=== PATIENT | female | born 1955 ===

== ENCOUNTER 2016-11-07 09:00 | Emergency (ER) | payer SELFPAY ==
[2016-11-07 09:09] VITALS: BMI 37.1
[2016-11-07] MEDS ORDERED: Albuterol-Ipratrop 3 mg / 0.5 (3 ml) UD IH STA ×2 (09:37)
[2016-11-07] MEDS ORDERED: Albuterol-Ipratrop 3 mg / 0.5 (3 ml) UD ONE (09:47)
--- NOTE | 2016-11-07 09:49 | ED PDOC ---
HPI: SOB/CHF/COPD Time Seen by Provider: 11/07/16 09:18 Chief Complaint (Nursing): Shortness Of Breath Chief Complaint (Provider): Shortness Of Breath History Per: Patient History/Exam Limitations: no limitations Onset/Duration Of Symptoms: Days (x1 week) Current Symptoms Are (Timing): Still Present Additional Complaint(s): 61 y/o female with a past medical history of asthma who presents to the emergency department with a complaint of shortness of breath, wheezing, and non- productive cough x1 week. Denies improvement with use of inhalers and fever. PMD: Dr. Franklin Romero MD Past Medical History Reviewed: Historical Data, Nursing Documentation, Vital Signs Vital Signs: Last Vital Signs Temp 98.4 F 11/07/16 09:09 Pulse 83 11/07/16 09:09 Resp 18 11/07/16 09:27 BP 140/81 11/07/16 09:09 Pulse Ox 98 11/07/16 09:51 - Medical History PMH: Asthma - Surgical History Surgical History: No Surg Hx - Family History Family History: States: Unknown Family Hx - Social History Current smoker - smoking cessation education provided: No Alcohol: None Drugs: Denies - Home Medications Home Medications: Ambulatory Orders Medication Instructions Recorded Albuterol 0.5% [Albuterol 0.5% 3 ml IH Q4H PRN #50 neb 03/14/16 Inhal Francheska (2.5 mg/0.5 ml) UD] Albuterol HFA [Ventolin HFA 90 2 puff IH Q4H PRN #1 inh 03/14/16 mcg/actuation (8 g)] Azithromycin [Zithromax] 250 mg PO DAILY #6 dose 03/14/16 Ciprofloxacin HCl [Cipro] 250 mg PO BID #6 tab 03/14/16 Prednisone 50 mg PO DAILY #4 tablet 03/14/16 Albuterol 0.083% [Albuterol 0.5 ml IH Q8 #1 neb 11/07/16 Sulfate 3 Ml] Non-Formulary 1 ea .ROUTE Q6 #1 ea 11/07/16 predniSONE [predniSONE Tab] 10 mg PO TID #15 tab 11/07/16 - Allergies Allergies/Adverse Reactions: Allergies Allergy/AdvReac Type Severity Reaction Status Date / Time No Known Allergies Allergy Verified 11/07/16 09:11 Review of Systems ROS Statement: Except As Marked, All Systems Reviewed And Found Negative Constitutional: Negative for: Fever Respiratory: Positive for: Cough (Non-productive), Shortness of Breath, Wheezing Physical Exam - Reviewed Nursing Documentation Reviewed: Yes Vital Signs Reviewed: Yes - Physical Exam Appears: Positive for: Non-toxic, No Acute Distress Head Exam: Positive for: ATRAUMATIC, NORMAL INSPECTION, NORMOCEPHALIC Skin: Positive for: Normal Color, Warm, Dry Cardiovascular/Chest: Positive for: Regular Rate, Rhythm. Negative for: Murmur Respiratory: Positive for: Rhonchi, Wheezing (Expiratory wheezing with rhonchi b /l). Negative for: Normal Breath Sounds, Accessory Muscle Use, Respiratory Distress Extremity: Positive for: Normal ROM. Negative for: Calf Tenderness, Swelling Neurologic/Psych: Positive for: Alert, Oriented - Laboratory Results Result Diagrams: 11/07/16 09:55 - ECG O2 Sat by Pulse Oximetry: 98 (RA) Pulse Ox Interpretation: Normal Medical Decision Making Medical Decision Making: Time: 09:36 Initial impression: Asthma Exacerbation Initial plan: --BMP --CBC w/ diff --Chest x-ray --Duoneb 3ml UD --Duoneb 3ml UD --Methylpredisolone 125 mg IVP --Peak Flow Pre/Post TX --Peak Flow Pre/Post TX --Reevaluation Scribe Attestation: Documented by Evelyn Horvath, acting as a scribe for Bryan Boyer MD. Provider Scribe Attestation: All medical record entries made by the Scribe were at my direction and personally dictated by me. I have reviewed the chart and agree that the record accurately reflects my personal performance of the history, physical exam, medical decision making, and the department course for this patient. I have also personally directed, reviewed, and agree with the discharge instructions and disposition. Disposition - Clinical Impression Clinical Impression: Asthma exacerbation - Patient ED Disposition Is Patient to be Admitted: No Counseled Patient/Family Regarding: Studies Performed, Diagnosis, Need For Followup, Rx Given - Disposition Referrals: [facility] [Outside] Disposition: Routine/Home Disposition Time: 10:28 Condition: FAIR Prescriptions: Albuterol 0.083% [Albuterol Sulfate 3 Ml] 0.5 ml IH Q8 #1 neb Non-Formulary 1 ea .ROUTE Q6 #1 ea predniSONE [predniSONE Tab] 10 mg PO TID #15 tab Instructions: Asthma (ED) Forms: [facility] (Gabonese)
[2016-11-07 10:05] LABS: BASO # 0.1 K/uL (0.0-0.2); EOS % 0.2 % (0.0-4.0); HEMOGLOBIN 14.2 g/dL (12.0-16.0); LYMPH # 2.2 K/uL (1.0-4.3); LYMPH % 17.7 % (20.0-40.0); MEAN CELL VOLUME 96.9 fl (81.0-99.0); MEAN CORPUSCULAR HEMOGLOBIN 32.5 pg (27.0-31.0); MEAN CORPUSCULAR HGB CONC 33.5 g/dL (33.0-37.0); MEAN PLATELET VOLUME 8.6 fl (7.2-11.7); MONO # 0.6 K/uL (0.0-0.8); MONO % 5.1 % (0.0-10.0); NEUT # 9.5 K/uL (1.8-7.0); RBC 4.37 Mil/uL (3.80-5.20); RED CELL DISTRIBUTION WIDTH 13.4 % (11.5-14.5); WHITE BLOOD COUNT 12.5 K/uL (4.8-10.8)
--- NOTE | 2016-11-07 10:21 | RAD ---
HISTORY: sob COMPARISON: No prior. TECHNIQUE: Chest PA and lateral FINDINGS: LUNGS: No active pulmonary disease. PLEURA: No significant pleural effusion identified. No pneumothorax apparent. CARDIOVASCULAR: Normal. OSSEOUS STRUCTURES: No significant abnormalities. VISUALIZED UPPER ABDOMEN: Normal. OTHER FINDINGS: None. IMPRESSION: No active disease.
[2016-11-07 10:31] LABS: BLOOD UREA NITROGEN 22 mg/dl (7-17); CALCIUM 10.4 mg/dL (8.4-10.2); GFR AFRICAN-AMERICAN > 60; GFR NON-AFRICAN AMERICAN > 60
[2016-11-07 11:02] VITALS: BP 131/77; PULSE 88; RESP 19; TEMP 98; O2SAT 97
== END 2016-11-07 11:07 | disposition home or self-care (01) ==
LOC: H.ER 09:00
DX: J45.901 Unspecified asthma with (acute) exacerbation (principal)

== ENCOUNTER 2017-05-01 18:37 | Inpatient (IN) | payer SELFPAY ==
[2017-05-01 18:37] VITALS: BMI 37.1
[2017-05-01] MEDS ORDERED: Albuterol-Ipratrop 3 mg / 0.5 (3 ml) UD INH STA ×2 (19:05→20:11)
[2017-05-01] MEDS ORDERED: Albuterol-Ipratrop 3 mg / 0.5 (3 ml) UD ONE ×2 (19:10→19:28)
--- NOTE | 2017-05-01 19:39 | ED PDOC ---
HPI: Asthma Time Seen by Provider: 05/01/17 18:56 Chief Complaint (Nursing): Flu-like Symptoms Chief Complaint (Provider): Asthma History Per: Patient History/Exam Limitations: no limitations Onset/Duration Of Symptoms: Days (x5) Current Symptoms Are (Timing): Still Present Associated Symptoms: Cough Additional Complaint(s): 61 year old female presents to ED with complaints of cough and wheeze x5 days and has a past medical history of asthma. Patient notes using albuterol nebulizer, pump, and Symbicort with no relief. (-) fever, chest pain, hemoptysis , or previous intubations. PCP: [facility] Past Medical History Reviewed: Historical Data, Nursing Documentation, Vital Signs Vital Signs: Last Vital Signs Temp 98.6 F 05/01/17 18:49 Pulse 95 H 05/01/17 18:49 Resp 18 05/01/17 18:49 BP 148/60 05/01/17 18:49 Pulse Ox 95 05/01/17 18:49 - Medical History PMH: Asthma - Family History Family History: States: Unknown Family Hx - Social History Current smoker - smoking cessation education provided: No Ex-Smoker (has not smoked in the last 12 months): No - Home Medications Home Medications: Ambulatory Orders Medication Instructions Recorded Albuterol HFA [Ventolin HFA 90 2 puff IH [id number] 05/01/17 mcg/actuation (8 g)] Budesonide/Formoterol Fumarate 2 puff IH BID 05/01/17 [Symbicort] Montelukast [Singulair] 10 mg PO DAILY 05/01/17 - Allergies Allergies/Adverse Reactions: Allergies Allergy/AdvReac Type Severity Reaction Status Date / Time No Known Allergies Allergy Verified 05/01/17 20:42 Review of Systems ROS Statement: Except As Marked, All Systems Reviewed And Found Negative Constitutional: Negative for: Fever Cardiovascular: Negative for: Chest Pain Respiratory: Positive for: Cough, Wheezing. Negative for: Hemoptysis Physical Exam - Reviewed Nursing Documentation Reviewed: Yes Vital Signs Reviewed: Yes - Physical Exam Appears: Positive for: Non-toxic, No Acute Distress (Speaking full sentences) Skin: Positive for: Normal Color, Warm, Dry Eye Exam: Positive for: Normal appearance, EOMI, PERRL ENT: Positive for: Normal ENT Inspection Respiratory: Positive for: Wheezing (moderate bilateral expiratory wheezing). Negative for: Normal Breath Sounds, Respiratory Distress Neurologic/Psych: Positive for: Alert, Oriented. Negative for: Motor/Sensory Deficits - Laboratory Results Result Diagrams: 05/01/17 19:33 05/01/17 19:33 - ECG ECG: Positive for: Interpreted By Me ECG Rhythm: Positive for: Sinus Rhythm. Negative for: ST/T Changes Rate: 93 O2 Sat by Pulse Oximetry: 95 (RA) Pulse Ox Interpretation: Normal Medical Decision Making Medical Decision Makin Initial impression: bronchospasm Initial plan: * EKG * Labs * CXR * Duonebs 9mL INH * Solumedrol 125mg IVP * Peak flow pre/post Tx * Re-eval 2031 Upon re-evaluation patient notes that she is not feeling any better and has persistent wheezing. Patient is in no distress. Repeat pulse ox is RA 91. * Duonebs 9mL INH * Peak flow pre/post Tx * Magnesium Sulfate 2 gm 100mL IVPB * Re-eval Case discussed with Dr. Shields who agrees with care. [address] Olivarez, family practice resident. Arrangements made for 24 hour OBS TELE. 2108 CXR FINDINGS Lungs: Mild underinflation. Minimal patchy opacities lung bases. Pleural space: No pleural effusion. No pneumothorax. Heart: No cardiomegaly. Mediastinum: Unremarkable. Bones/joints: Compression deformities lower thoracic spine, likely chronic. IMPRESSION: 1. Bibasilar atelectasis vs early pneumonia. 2. Incidental/non-acute findings are described above. Blood culture x 2, VBG, levaquin 500mg IV ordered. Scribe Attestation: Documented by Lorena Enamorado, acting as a scribe for [place] Rock PA-C. Provider Scribe Attestation: All medical record entries made by the Scribe were at my direction and personally dictated by me. I have reviewed the chart and agree that the record accurately reflects my personal performance of the history, physical exam, medical decision making, and the department course for this patient. I have also personally directed, reviewed, and agree with the discharge instructions and disposition. Disposition - Clinical Impression Clinical Impression: Status asthmaticus, Pneumonia - Patient ED Disposition Is Patient to be Admitted: Yes - Disposition Disposition Time: 20:37 Condition: STABLE - Pt Status Changed To: Hospital Disposition Of: Observation
[2017-05-01 19:46] LABS: BASO # 0.2 K/uL (0.0-0.2); BASO % 1.4 % (0.0-2.0); EOS # 1.6 K/uL (0.0-0.7); EOS % 10.7 % (0.0-4.0); LYMPH # 3.1 K/uL (1.0-4.3); LYMPH % 20.8 % (20.0-40.0); MEAN CELL VOLUME 98.2 fl (81.0-99.0); MEAN CORPUSCULAR HEMOGLOBIN 32.5 pg (27.0-31.0); MEAN CORPUSCULAR HGB CONC 33.1 g/dL (33.0-37.0); MONO % 6.7 % (0.0-10.0); NEUT # 9.1 K/uL (1.8-7.0); NEUT % 60.4 % (50.0-75.0); RBC 4.32 Mil/uL (3.80-5.20); RED CELL DISTRIBUTION WIDTH 13.3 % (11.5-14.5)
[2017-05-01 19:52] LABS: ALB/GLOB RATIO 1.5 (1.0-2.1); ALBUMIN 4.4 g/dL (3.5-5.0); ALT/SGPT 31 U/L (9-52); AST/SGOT 23 U/L (14-36); BLOOD UREA NITROGEN 27 mg/dl (7-17); GFR AFRICAN-AMERICAN > 60; GFR NON-AFRICAN AMERICAN > 60
[2017-05-01] MEDS ORDERED: Magnesium Sulfate 2 gm/50 ml 2 GM/50 ML BAG IVPB ONE (20:45)
[2017-05-01] MEDS ORDERED: Magnesium Sulfate 2 gm/50 ml 2 GM/50 ML BAG ONE (20:54)
--- NOTE | 2017-05-01 21:09 | RAD ---
EXAM: XR Chest, 2 Views CLINICAL HISTORY: 61 years old, female; Signs and symptoms; Cough; Symptoms not specified TECHNIQUE: Frontal and lateral views of the chest. COMPARISON: No relevant prior studies available. FINDINGS: Lungs: Mild underinflation. Minimal patchy opacities lung bases. Pleural space: No pleural effusion. No pneumothorax. Heart: No cardiomegaly. Mediastinum: Unremarkable. Bones/joints: Compression deformities lower thoracic spine, likely chronic. IMPRESSION: 1. Bibasilar atelectasis vs early pneumonia. 2. Incidental/non-acute findings are described above.
[2017-05-01] MEDS ORDERED: levoFLOXacin 500 mg in D5W 500 MG/100 ML BAG IVPB STA (21:39)
--- NOTE | 2017-05-01 22:26 | CP.PCM.HP ---
History of Present Illness - History of Present Illness History of Present Illness: 61 yo ,f, PMhx/o Asthma, Arthritis, Vit D defficiency presents to ED c/o SOB started 3 days ago associated with dry cough, on occasions productive with light yellow color expectoration and wheezing. She reports been using albuterol nebulizer, pump every 4 hours and Symbicort without relief. She denies fever, chest pain, palpitation, n,v,abd pain, diarrhea, sick contact, orthopnea, [place], PND, pedal edema, hx/o DVT, recent travel. Reports last exacerbation of asthma 5 months ago. On evaluation of pt in ED fast track pt able to speak in full sentences in on respiratory distress but with persistent expiratory wheezing and rales left lung base after treatment. PMD: [facility](Dr Toscano) Allergies: NKDA Meds: Albuterol , Symbicort 160-4.5 2 puff BID, singulair 10 mg daily PSHx: no ETOH, rect drugs, cig. Code status: full code ED Course: VS: temp normal, BP: 148/60 O2 sat 95 HR: 95 Labs: cbc 15>14<314 eosin 10.7 Imaging: CXR: Bibsilar atelectasis vs early PNA Meds: duoneb x 3, Mg x 1 dose, solumedrol Present on Admission - Present on Admission Any Indicators Present on Admission: No History of DVT/PE: No History of Uncontrolled Diabetes: No Review of Systems - Cardiovascular Cardiovascular: As Per HPI - Respiratory Respiratory: As Per HPI - Gastrointestinal Gastrointestinal: As Per HPI Past Patient History - Past Social History Smoking Status: Never Smoked - PULMONARY Hx Asthma: Yes - ENDOCRINE/METABOLIC Hx Diabetes Mellitus Type 2: Yes - PSYCHIATRIC Hx Substance Use: No - SURGICAL HISTORY Hx Surgeries: No Meds Allergies/Adverse Reactions: Allergies Allergy/AdvReac Type Severity Reaction Status Date / Time No Known Allergies Allergy Verified 05/01/17 20:42 Physical Exam - Constitutional Appears: No Acute Distress - Head Exam Head Exam: ATRAUMATIC, NORMOCEPHALIC - Eye Exam Eye Exam: Normal appearance - ENT Exam ENT Exam: Mucous Membranes Moist - Respiratory Exam Respiratory Exam: Decreased Breath Sounds, Rales, Wheezes Additional comments: Diminished breath sound bibasal, left lung base rales, wheezing on expiration upper chest ant and post 2/3 - Cardiovascular Exam Cardiovascular Exam: REGULAR RHYTHM, +S1, +S2 - GI/Abdominal Exam GI & Abdominal Exam: Normal Bowel Sounds, Soft. absent: Tenderness - Extremities Exam Extremities exam: Positive for: normal inspection. Negative for: pedal edema - Neurological Exam Neurological exam: Alert, Oriented x3 - Psychiatric Exam Psychiatric exam: Normal Affect, Normal Mood - Skin Skin Exam: Intact Results - Vital Signs Recent Vital Signs: Last Vital Signs Temp 98 F 05/01/17 20:32 Pulse 74 05/01/17 20:32 Resp 22 05/01/17 20:32 BP 117/70 05/01/17 20:32 Pulse Ox 95 05/01/17 21:41 - Labs Result Diagrams: 05/01/17 19:33 05/01/17 19:33 Labs: Laboratory Results - last 24 hr 05/01/17 05/01/17 19:33 19:33 WBC 15.0 H RBC 4.32 Hgb 14.0 Hct 42.4 MCV 98.2 MCH 32.5 H MCHC 33.1 RDW 13.3 Plt Count 314 MPV 9.0 Neut % (Auto) 60.4 Lymph % (Auto) 20.8 Griggs % (Auto) 6.7 Eos % (Auto) 10.7 H Baso % (Auto) 1.4 Neut # 9.1 H Lymph # 3.1 Gr[place]gs # 1.0 H Eos # 1.6 H Baso # 0.2 Sodium 144 Potassium 4.4 Chloride 105 Carbon Dioxide 28 Anion Gap 15 BUN 27 H Creatinine 0.8 Est GFR ( Amer) > 60 Est GFR (Non-Af Amer) > 60 Random Glucose 133 H Calcium 10.0 Total Bilirubin 0.5 AST 23 ALT 31 Alkaline Phosphatase 61 Total Protein 7.4 Albumin 4.4 Globulin 3.0 Albumin/Globulin Ratio 1.5 Assessment & Plan - Assessment and Plan (Free Text) Plan: 61 yo ,f, PMhx/o Asthma, Arthritis, Vit D deficiency presents c/o worsening SOB , wheezing and cough for the las 3 days, admitted for Status asthmaticus in Obs. Assessment/Plan 1) Status Asthmaticus -secondary to acute asthma exacerbation -CXR: Bibsilar atelectasis vs early PNA -VBG normal. lactate 1.1 -s/p Duoneb, methylprednisone, Mg in Ed -Admit Telemetry -O2 nc -Duoneb q4h PRN -Metylpredisone 60 mg BID -Symbicort 2) CAP -cough, SOB, rales, leukocytosis --CXR: Bibsilar atelectasis vs early PNA -s/p levaquin ED -Ceftriaxone 1 g daily+ Azythromycin 500 mg IV daily -f/u cbc, CXR 3) DVT Prophylaxis -Lovenox 40 mg sc daily
[2017-05-01] MEDS ORDERED: levoFLOXacin 500 mg in D5W 500 MG/100 ML BAG IVPB ONE (22:32)
[2017-05-01 22:39] LABS: VENOUS BLOOD GAS BASE EXCESS 1.2 mmol/L (0.0-2.0); VENOUS BLOOD GAS PCO2 47 mmHg (40-60); VENOUS BLOOD GAS PO2 80 mm/Hg (30-55); VENOUS BLOOD PH 7.37 (7.32-7.43)
[2017-05-01] MEDS ORDERED: Albuterol-Ipratrop 3 mg / 0.5 (3 ml) UD INH PRN (22:45)
[2017-05-02] MEDS ORDERED: methylPREDNISolone 60 MG in Sodium Chloride 0.9% 50 ML IV SCH (06:00)
[2017-05-02 08:31] LABS: HEMOGLOBIN 13.2 g/dL (12.0-16.0); MEAN CORPUSCULAR HEMOGLOBIN 32.4 pg (27.0-31.0); MEAN CORPUSCULAR HGB CONC 32.7 g/dL (33.0-37.0); RBC 4.08 Mil/uL (3.80-5.20); RED CELL DISTRIBUTION WIDTH 13.2 % (11.5-14.5)
--- NOTE | 2017-05-02 08:51 | CP.PCM.PN ---
Subjective - Date & Time of Evaluation Date of Evaluation: 05/02/17 Time of Evaluation: 08:51 - Subjective Subjective: Pt seen and examined at bedside with attending. 61F admitted for asthma exacerbation after 1 week of URI symptoms. Patient reports feeling better, specifically she is still feeling mildly short of breath on exertion, but says "it is much better than yesterday". She denies any chest pain/palpitations, /GI symptoms. Otherwise, she has no acute complaints. Objective - Vital Signs/Intake and Output Vital Signs (last 24 hours): Temp Pulse Resp BP Pulse Ox 36.9 C 70 18 110/68 96 05/02/17 08:34 05/02/17 08:34 05/02/17 08:34 05/02/17 08:34 05/02/17 08:34 - Medications Medications: Current Medications Acetaminophen (Tylenol 325mg Tab) 650 mg PO Q6 PRN PRN Reason: Fever >100.4 F Albuterol/Ipratropium (Duoneb 3 Mg/0.5 Mg (3 Ml) Ud) 3 ml INH RQ4 PRN PRN Reason: Shortness of Breath Enoxaparin Sodium (Lovenox) 40 mg SC DAILY CORINE PRN Reason: Protocol Azithromycin 500 mg/ Sodium (Chloride) 250 mls @ 250 mls/hr IVPB DAILY CORINE PRN Reason: Protocol Methylprednisolone (Solu-Medrol) 60 mg IV Q12 CORINE Fluticasone/Salmeterol (Advair Diskus 250/50) 1 puff IH Q12 CORINE - Labs Labs: 05/02/17 07:00 05/01/17 19:33 - Constitutional Appears: Well, Non-toxic, No Acute Distress - Head Exam Head Exam: ATRAUMATIC, NORMAL INSPECTION - Eye Exam Eye Exam: EOMI, Normal appearance - ENT Exam ENT Exam: Mucous Membranes Moist, Normal Exam - Neck Exam Neck Exam: Full ROM, Normal Inspection - Respiratory Exam Respiratory Exam: Wheezes (mild, bibasilar; Best effort spirometry: 240 (no documented Nebs o/n)), NORMAL BREATHING PATTERN. absent: Accessory Muscle Use, Clear to Ausculation Bilateral, Respiratory Distress - Cardiovascular Exam Cardiovascular Exam: REGULAR RHYTHM, +S1, +S2 - GI/Abdominal Exam GI & Abdominal Exam: Soft, Normal Bowel Sounds - Extremities Exam Extremities Exam: Full ROM, Normal Capillary Refill - Neurological Exam Neurological Exam: Alert, Awake, Oriented x3 - Psychiatric Exam Psychiatric exam: Normal Affect, Normal Mood - Skin Skin Exam: Normal Color, Warm Assessment and Plan (1) Asthma exacerbation Assessment & Plan: Patient normally well-managed on Daily INH corticosteroids with ventolin as rescue experienced decompensation after URI symptoms 1 week ago. Although she has improved overnight, off of oxygen her oxygenation dropped to 91% (95% on 2LNC). Post neb treatment spirometry improved to 350 (Goal for her:300), however with drop in oxygenation would benefit from additional nebulizer and empiric treatment for CXR "early pneumonia". - DuoNebs Q4H, with peak flows - Advair, Q12H - Azithromycin - re-evaluate Status: Acute (2) Elevated glucose Assessment & Plan: After review on [employer], suspect this is secondary to systemic steroids administered in the ED. - monitor Status: Acute (3) DVT prophylaxis Assessment & Plan: Lovenox 40mg, SC, Daily Status: Acute
[2017-05-02 09:11] LABS: ALB/GLOB RATIO 1.3 (1.0-2.1); BLOOD UREA NITROGEN 24 mg/dl (7-17); CALCIUM 10.2 mg/dL (8.4-10.2); GFR AFRICAN-AMERICAN > 60; GFR NON-AFRICAN AMERICAN > 60
[2017-05-02 09:12] LABS: ALT/SGPT 24 U/L (9-52); AST/SGOT 22 U/L (14-36)
[2017-05-02] MEDS: Fluticasone-Salmeterol 250-50mcg Diskus IH SCH ×2 (09:46→20:42)
[2017-05-02] MEDS: Enoxaparin 40 mg Syringe SC SCH (09:47)
[2017-05-02] MEDS: Azithromycin 500 MG in Sodium Chloride 0.9% 250 ML IVPB SCH (09:48)
[2017-05-02] MEDS: Albuterol-Ipratrop 3 mg / 0.5 (3 ml) UD INH SCH ×3 (15:36→23:12)
[2017-05-03] MEDS: Albuterol-Ipratrop 3 mg / 0.5 (3 ml) UD INH SCH ×3 (03:50→11:19)
[2017-05-03 04:43] VITALS: RESP 18
[2017-05-03] MEDS: Fluticasone-Salmeterol 250-50mcg Diskus IH SCH (09:07)
[2017-05-03] MEDS: Enoxaparin 40 mg Syringe SC SCH (09:07)
[2017-05-03] MEDS: Azithromycin 500 MG in Sodium Chloride 0.9% 250 ML IVPB SCH (09:08)
--- NOTE | 2017-05-03 09:35 | CP.PCM.DIS ---
Provider - Provider Date of Admission: 05/02/17 20:22 Attending physician: Shertia Hutchins MD [facility] Time Spent in preparation of Discharge (in minutes): 30 Hospital Course - Lab Results Lab Results: Most Recent Lab Values WBC 12.0 K/uL (4.8-10.8) H 05/02/17 07:00 RBC 4.08 Mil/uL (3.80-5.20) 05/02/17 07:00 Hgb 13.2 g/dL (12.0-16.0) 05/02/17 07:00 Hct 40.4 % (34.0-47.0) 05/02/17 07:00 MCV 99.0 fl (81.0-99.0) 05/02/17 07:00 MCH 32.4 pg (27.0-31.0) H 05/02/17 07:00 MCHC 32.7 g/dL (33.0-37.0) L 05/02/17 07:00 RDW 13.2 % (11.5-14.5) 05/02/17 07:00 Plt Count 289 K/uL (130-400) 05/02/17 07:00 MPV 9.0 fl (7.2-11.7) 05/01/17 19:33 Neut % (Auto) 60.4 % (50.0-75.0) 05/01/17 19:33 Lymph % (Auto) 20.8 % (20.0-40.0) 05/01/17 19:33 Gem % (Auto) 6.7 % (0.0-10.0) 05/01/17 19:33 Eos % (Auto) 10.7 % (0.0-4.0) H 05/01/17 19:33 Baso % (Auto) 1.4 % (0.0-2.0) 05/01/17 19:33 Neut # 9.1 K/uL (1.8-7.0) H 05/01/17 19:33 Lymph # 3.1 K/uL (1.0-4.3) 05/01/17 19:33 Gem # 1.0 K/uL (0.0-0.8) H 05/01/17 19:33 Eos # 1.6 K/uL (0.0-0.7) H 05/01/17 19:33 Baso # 0.2 K/uL (0.0-0.2) 05/01/17 19:33 pO2 80 mm/Hg (30-55) H 05/01/17 21:54 VBG pH 7.37 (7.32-7.43) 05/01/17 21:54 VBG pCO2 47 mmHg (40-60) 05/01/17 21:54 VBG HCO3 25.7 mmol/L 05/01/17 21:54 VBG Total CO2 28.6 mmol/L (22-28) H 05/01/17 21:54 VBG O2 Sat (Calc) 98.6 % (40-65) H 05/01/17 21:54 VBG Base Excess 1.2 mmol/L (0.0-2.0) 05/01/17 21:54 VBG Potassium 3.8 mmol/L (3.6-5.2) 05/01/17 21:54 Sodium 138.0 mmol/L (132-148) 05/01/17 21:54 Chloride 104.0 mmol/L (98-107) 05/01/17 21:54 Glucose 222 mg/dL (65-105) H 05/01/17 21:54 Lactate 1.1 mmol/L (0.7-2.1) 05/01/17 21:54 FiO2 21.0 % 05/01/17 21:54 Sodium 142 mmol/l (132-148) 05/02/17 07:00 Potassium 4.6 MMOL/L (3.6-5.0) 05/02/17 07:00 Chloride 103 mmol/L (98-107) 05/02/17 07:00 Carbon Dioxide 27 mmol/L (22-30) 05/02/17 07:00 Anion Gap 17 (10-20) 05/02/17 07:00 BUN 24 mg/dl (7-17) H 05/02/17 07:00 Creatinine 0.6 mg/dl (0.7-1.2) L 05/02/17 07:00 Est GFR ( Amer) > 60 05/02/17 07:00 Est GFR (Non-Af Amer) > 60 05/02/17 07:00 POC Glucose (mg/dL) 216 mg/dL (65-110) H 05/03/17 05:14 Random Glucose 217 mg/dL (65-105) H 05/02/17 07:00 Calcium 10.2 mg/dL (8.4-10.2) 05/02/17 07:00 Total Bilirubin 0.4 mg/dl (0.2-1.3) 05/02/17 07:00 AST 22 U/L (14-36) 05/02/17 07:00 ALT 24 U/L (9-52) 05/02/17 07:00 Alkaline Phosphatase 51 U/L (38-126) 05/02/17 07:00 Total Protein 7.1 G/DL (6.3-8.2) 05/02/17 07:00 Albumin 4.0 g/dL (3.5-5.0) 05/02/17 07:00 Globulin 3.0 gm/dL (2.2-3.9) 05/02/17 07:00 Albumin/Globulin Ratio 1.3 (1.0-2.1) 05/02/17 07:00 Venous Blood Potassium 3.8 mmol/L (3.6-5.2) 05/01/17 21:54 - Hospital Course Hospital Course: 61 year old female PMHx asthma, arthritis, Vitamin D deficiency was admitted for status asthmaticus secondary to URI symptoms s/p failed treatment of rescue medications. CXR showed bibasilar atelectasis vs. early pneumonia. Patient was managed with Duonebs q4h prn, Methylprednisone 60mg, Advair, and Azithromycin 500mg. Post treatment, patient's O2 saturation improved to 97% on room air and spirometry improved to at least 300 after 3 attempts. Patient is stable for discharge home. Follow[facility]up [facility] Dr. Mccord on 05/10/2017 @ 9:40AM. Continue all home meds. Discharge medications: Azithromycin 500mg PO QD x3days Discharge Exam - Head Exam Head Exam: ATRAUMATIC, NORMAL INSPECTION, NORMOCEPHALIC - Eye Exam Eye Exam: EOMI, Normal appearance Pupil Exam: NORMAL ACCOMODATION, PERRL - ENT Exam ENT Exam: Mucous Membranes Moist, Normal Exam - Neck Exam Neck exam: Full Rom, Normal Inspection - Respiratory Exam Respiratory Exam: Decreased Breath Sounds, Wheezes (mild, improved, bibasilar), NORMAL BREATHING PATTERN - Cardiovascular Exam Cardiovascular Exam: REGULAR RHYTHM, +S1, +S2 - GI/Abdominal Exam GI & Abdominal Exam: Normal Bowel Sounds, Soft, Unremarkable. absent: Tenderness - Extremities Exam Extremities exam: full ROM, normal inspection - Back Exam Back exam: NORMAL INSPECTION. absent: tenderness - Neurological Exam Neurological exam: Alert, Oriented x3 - Psychiatric Exam Psychiatric exam: Normal Affect, Normal Mood - Skin Skin Exam: Dry, Intact, Normal Color, Warm Discharge Plan - Discharge Medications Prescriptions: Azithromycin 500 mg PO DAILY 3 Days #3 tablet - Follow Up Plan Condition: STABLE Disposition: HOME/ ROUTINE Patient education suggested?: Yes Instructions: Asthma (DC) Additional Instructions: Follow-up [facility] Dr. Mccord on 05/10/2017 @ 9:40AM. Referrals: Varun Mccord MD [Resident] - 1 Week (Follow-up [facility] Dr. Mccord on 05/10/2017 @ 9 :40AM.)
[2017-05-03 12:54] VITALS: BP 121/61; PULSE 71; O2SAT 96
--- NOTE | 2017-05-03 12:59 | CARD ---
APPROVED REPORT EKG Measurement Heart [id number] <Conclusion> Normal sinus rhythm Right bundle branch block Inferior infarct, age undetermined Abnormal ECG
[2017-05-03 13:32] VITALS: TEMP 97.2
== END 2017-05-03 13:37 | disposition home or self-care (01) | DRG 96 ==
LOC: H.ER 18:37 → H.ERHOLD 21:28 → H.TEL 23:02 → OBSVTOIN 05-02 20:22
PROVIDERS: ADMIT Family Medicine Geriatric Medicine; ATTEND Family Medicine Geriatric Medicine
DX: J45.902 Unspecified asthma with status asthmaticus (principal); E11.65 Type 2 diabetes mellitus with hyperglycemia; E55.9 Vitamin D deficiency, unspecified; M19.90 Unspecified osteoarthritis, unspecified site; T38.0X5A Adverse effect of glucocorticoids and synthetic analogues, initial encounter; J06.9 Acute upper respiratory infection, unspecified

== ENCOUNTER 2017-09-26 18:01 | Observation (INO) | payer SELFPAY ==
[2017-09-26 18:01] VITALS: BMI 37.1
[2017-09-26] MEDS ORDERED: Albuterol-Ipratrop 3 mg / 0.5 (3 ml) UD INH STA (18:17)
[2017-09-26] MEDS ORDERED: Albuterol-Ipratrop 3 mg / 0.5 (3 ml) UD ONE ×2 (18:25→18:43)
--- NOTE | 2017-09-26 19:01 | ED PDOC ---
HPI: SOB/CHF/COPD Time Seen by Provider: 09/26/17 18:11 Chief Complaint (Nursing): Respiratory Distress Chief Complaint (Provider): Shortness of Breath History Per: Patient History/Exam Limitations: no limitations Onset/Duration Of Symptoms: Days (x2) Current Symptoms Are (Timing): Still Present Quality: Tightness (chest) Additional Complaint(s): 61 year old female with a history of asthma presents to the ED with shortness of breath that gradually started Kaleb night. She reports symptoms have worsened since onset. She states she has associated chest tightness and nonproductive cough. Patient had a similar episode of asthma exacerbation in the past. She has been taking Albuterol and Symbicort with short term relief. Patient developed nasal congestion in ER. She denies chest pain, fever, chills, leg swelling, dizziness, or any other medical complaints. PMD: [facility] Past Medical History Reviewed: Historical Data, Nursing Documentation, Vital Signs Vital Signs: Last Vital Signs Temp 98.2 F 09/27/17 12:01 Pulse 94 H 09/27/17 12:01 Resp 18 09/27/17 12:01 BP 144/65 09/27/17 12:01 Pulse Ox 95 09/27/17 12:01 - Medical History PMH: Asthma Denies: HIV, Chronic Kidney Disease - Surgical History Surgical History: No Surg Hx - Family History Family History: States: Other Other Family History: Asthma - Social History Current smoker - smoking cessation education provided: No Ex-Smoker (has not smoked in the last 12 months): No - Home Medications Home Medications: Ambulatory Orders Medication Instructions Recorded Albuterol HFA [Ventolin HFA 90 2 puff IH [id number] 05/01/17 mcg/actuation (8 g)] Budesonide/Formoterol Fumarate 2 puff IH BID 05/01/17 [Symbicort 160-4.5 Mcg Inhaler] Montelukast [Singulair] 10 mg PO DAILY 05/01/17 - Allergies Allergies/Adverse Reactions: Allergies Allergy/AdvReac Type Severity Reaction Status Date / Time No Known Allergies Allergy Verified 05/01/17 20:42 Review of Systems ROS Statement: Except As Marked, All Systems Reviewed And Found Negative Constitutional: Negative for: Fever, Chills ENT: Positive for: Nose Congestion Cardiovascular: Positive for: Other (chest tightness). Negative for: Chest Pain Respiratory: Positive for: Shortness of Breath Physical Exam - Reviewed Nursing Documentation Reviewed: Yes Vital Signs Reviewed: Yes - Physical Exam Appears: Positive for: Non-toxic (but tired), In Acute Distress (mild) Head Exam: Positive for: ATRAUMATIC, NORMOCEPHALIC Skin: Positive for: Normal Color, Warm, Dry Eye Exam: Positive for: EOMI, Normal appearance, PERRL ENT: Positive for: Pharynx Is (cldear), Nasal Congestion Neck: Positive for: Painless ROM, Supple Cardiovascular/Chest: Positive for: Regular Rate, Rhythm, Chest Non Tender. Negative for: Murmur Respiratory: Positive for: Decreased Breath Sounds (diffusely ), Wheezing ( scattered), Respiratory Distress, Other (poor air movement). Negative for: Rales Gastrointestinal/Abdominal: Positive for: Soft. Negative for: Tenderness Back: Positive for: Normal Inspection. Negative for: Decreased ROM Extremity: Negative for: Pedal Edema, Calf Tenderness Lymphatic: Negative for: Adenopathy Neurologic/Psych: Positive for: Alert. Negative for: Motor/Sensory Deficits - Laboratory Results Result Diagrams: 09/27/17 04:20 09/26/17 18:54 - ECG ECG Rhythm: Positive for: Sinus Rhythm, Right Bundle Branch Block O2 Sat by Pulse Oximetry: 97 (RA) Pulse Ox Interpretation: Normal - Radiology X-Ray: Interpreted by Al X-Ray Interpretation: No Acute Disease - Progress Re-evaluation Time: 20:00 Condition: Re-examined, Unchanged (minimal improvement of peak flow and symptoms. Magnesium ordered.) - Critical Care Total Time (In Min): 30 Documented Critical Care: Time excludes all time spent performint seperately billable procedures Medical Decision Making Medical Decision Making: Time: 18:16 Initial Impression: Asthma exacerbation Differential diagnoses include but are not limited to: Pneumonia, congestive heart failure, acute coronary syndrome, URI, bronchitis Initial Plan: --EKG --B-type natriuretic peptide --CMP --Magnesium --Phosphorus --Troponin --CBC with differentials --Partial thromboplastin time --Prothrombin time Scribe Attestation: Documented by Jennifer Valentine, acting as a scribe for Pao Shields MD Provider Scribe Attestation: All medical record entries made by the Scribe were at my direction and personally dictated by me. I have reviewed the chart and agree that the record accurately reflects my personal performance of the history, physical exam, medical decision making, and the department course for this patient. I have also personally directed, reviewed, and agree with the discharge instructions and disposition. Disposition - Clinical Impression Clinical Impression: Acute bronchitis with chronic obstructive pulmonary disease (COPD), Respiratory distress Discussed With : Letitia Cuba Comment: FP resident for hospitalization Doctor Will See Patient In The: ED Counseled Patient/Family Regarding: Studies Performed, Diagnosis - Disposition Disposition Time: 20:00 Condition: FAIR - Pt Status Changed To: Hospital Disposition Of: Observation - POA Present On Arrival: None
[2017-09-26 19:05] LABS: BASO # 0.1 K/uL (0.0-0.2); BASO % 0.6 % (0.0-2.0); EOS % 6.3 % (0.0-4.0); HEMOGLOBIN 13.8 g/dL (12.0-16.0); LYMPH % 6.3 % (20.0-40.0); MEAN CELL VOLUME 97.2 fl (81.0-99.0); MEAN CORPUSCULAR HEMOGLOBIN 32.8 pg (27.0-31.0); MEAN CORPUSCULAR HGB CONC 33.7 g/dL (33.0-37.0); MEAN PLATELET VOLUME 8.5 fl (7.2-11.7); MONO # 0.8 K/uL (0.0-0.8); MONO % 5.2 % (0.0-10.0); NEUT # 12.6 K/uL (1.8-7.0); NEUT % 81.6 % (50.0-75.0); NRBC % 0.1 % (0.0-0.0); PLATELET COUNT 318 K/uL (130-400); RBC 4.22 Mil/uL (3.80-5.20); RED CELL DISTRIBUTION WIDTH 13.4 % (11.5-14.5); WHITE BLOOD COUNT 15.5 K/uL (4.8-10.8)
[2017-09-26 19:08] LABS: ALB/GLOB RATIO 1.2 (1.0-2.1); ALBUMIN 4.4 g/dL (3.5-5.0); CALCIUM 9.9 mg/dL (8.4-10.2); GFR AFRICAN-AMERICAN > 60; GFR NON-AFRICAN AMERICAN > 60
[2017-09-26 19:11] LABS: ALT/SGPT 38 U/L (9-52); AST/SGOT 25 U/L (14-36); BLOOD UREA NITROGEN 21 mg/dl (7-17); INR 1.1 (0.9-1.2); PARTIAL THROMBOPLASTIN TIME 35.6 Seconds (25.6-37.1); PROTHROMBIN TIME 11.7 Seconds (9.8-13.1)
[2017-09-26 19:20] LABS: B-TYPE NATRIURETIC PEPTIDE 49.5 pg/ml (0-900)
[2017-09-26] MEDS ORDERED: Magnesium Sulfate 2 gm/50 ml 2 GM/50 ML BAG IVPB ONE (19:53)
[2017-09-26] MEDS ORDERED: Magnesium Sulfate 2 gm/50 ml 2 GM/50 ML BAG ONE (20:02)
[2017-09-26] MEDS ORDERED: Azithromycin 500 MG in Sodium Chloride 0.9% 250 ML IVPB STA (20:08)
[2017-09-26] MEDS ORDERED: Albuterol HFA 90 mcg/actuation (8 g) IH PRN (20:45)
[2017-09-26 20:50] LABS: BANDS 1 % (0-2); NEUTROPHIL 76 % (42-75); TOTAL CELLS COUNTED 100
[2017-09-26 20:51] LABS: PLATELET ESTIMATE NORMAL (NORMAL)
[2017-09-26 20:54] LABS: LYMPHOCYTE 14 % (20-50); MONOCYTE 6 % (0-10)
[2017-09-26 20:55] LABS: EOSINOPHIL 3 % (0-7)
--- NOTE | 2017-09-26 21:29 | CP.PCM.HP ---
History of Present Illness - History of Present Illness History of Present Illness: 61 YO F w/ PMH of asthma presents to the ED with SOB which has been worsening since wednesday. Yesterday patient was using the nebulizer every 3 hours. Today when it wasnt getting better patient came into ED. She has been having a nonproductive dry cough over the last week. However denies any fever, chills, nausea or vomiting. PMD: [facility] Allergies: NKDA Med: Albuterol, Sybicort, singulair PSH: Denies any smoking or alcohol usage FULL CODE Present on Admission - Present on Admission Any Indicators Present on Admission: No Past Patient History - Infectious Disease Hx of Infectious Diseases: None - Past Medical History & Family History Past Medical History?: Yes - Past Social History Smoking Status: Never Smoked - CARDIAC Hx Cardiac Disorders: No - PULMONARY Hx Asthma: Yes - NEUROLOGICAL Hx Neurological Disorder: No - HEENT Hx HEENT Problems: No - RENAL Hx Chronic Kidney Disease: No - ENDOCRINE/METABOLIC Hx Endocrine Disorders: Yes Hx Diabetes Mellitus Type 2: Yes - HEMATOLOGICAL/ONCOLOGICAL Hx Human Immunodeficiency Virus (HIV): No - INTEGUMENTARY Hx Dermatological Problems: No - MUSCULOSKELETAL/RHEUMATOLOGICAL Hx Musculoskeletal Disorders: No Hx Falls: No - GASTROINTESTINAL Hx Gastrointestinal Disorders: No - GENITOURINARY/GYNECOLOGICAL Hx Genitourinary Disorders: No - PSYCHIATRIC Hx Psychophysiologic Disorder: No Hx Substance Use: No - SURGICAL HISTORY Hx Surgeries: No - ANESTHESIA Hx Anesthesia: No Hx Anesthesia Reactions: No Meds Allergies/Adverse Reactions: Allergies Allergy/AdvReac Type Severity Reaction Status Date / Time No Known Allergies Allergy Verified 05/01/17 20:42 Physical Exam - Constitutional Appears: No Acute Distress - Head Exam Head Exam: NORMAL INSPECTION, NORMOCEPHALIC - Eye Exam Eye Exam: Normal appearance - ENT Exam ENT Exam: Mucous Membranes Moist - Respiratory Exam Respiratory Exam: Decreased Breath Sounds, Wheezes (scattered) - Cardiovascular Exam Cardiovascular Exam: REGULAR RHYTHM, +S1, +S2 - GI/Abdominal Exam GI & Abdominal Exam: Normal Bowel Sounds, Soft. absent: Tenderness - Neurological Exam Neurological exam: Alert, CN II-XII Intact, Oriented x3 - Skin Skin Exam: Normal Color, Warm Results - Vital Signs Recent Vital Signs: Last Vital Signs Temp 97.7 F 09/26/17 18:05 Pulse 89 09/26/17 18:05 Resp 22 09/26/17 18:44 BP 140/67 09/26/17 18:05 Pulse Ox 97 09/26/17 19:09 - Labs Result Diagrams: 09/26/17 18:54 09/26/17 18:54 Labs: Laboratory Results - last 24 hr 09/26/17 09/26/17 09/26/17 18:54 18:54 18:54 WBC 15.5 H RBC 4.22 Hgb 13.8 Hct 41.0 MCV 97.2 MCH 32.8 H MCHC 33.7 RDW 13.4 Plt Count 318 MPV 8.5 Neut % (Auto) 81.6 H Lymph % (Auto) 6.3 L [place] % (Auto) 5.2 Eos % (Auto) 6.3 H Baso % (Auto) 0.6 Neut # (Auto) 12.6 H Lymph # (Auto) 1.0 [place] # (Auto) 0.8 Eos # (Auto) 1.0 H Baso # (Auto) 0.1 Neutrophils % (Manual) 76 H Band Neutrophils % 1 Lymphocytes % (Manual) 14 L Reactive Lymphs % Product Grader Monocytes % (Manual) 6 Eosinophils % (Manual) 3 Platelet Estimate Normal RBC Morphology Normal PT 11.7 INR 1.1 APTT 35.6 Sodium 143 Potassium 4.1 Chloride 104 Carbon Dioxide 29 Anion Gap 14 BUN 21 H Creatinine 0.5 L Est GFR ( Amer) > 60 Est GFR (Non-Af Amer) > 60 Random Glucose 124 H Calcium 9.9 Phosphorus 3.2 Magnesium 2.0 Total Bilirubin 0.6 AST 25 ALT 38 Alkaline Phosphatase 24 L D Troponin I < 0.0120 NT-Pro-B Natriuret Pep 49.5 Total Protein 8.1 Albumin 4.4 Globulin 3.7 Albumin/Globulin Ratio 1.2 Assessment & Plan - Assessment and Plan (Free Text) Assessment: 61 yo ,f, PMhx/o Asthma, Arthritis, Vit D deficiency presents c/o worsening SOB , wheezing and cough for the las 3 days, admitted for Status asthmaticus in Obs. Assessment/Plan 1) Status Asthmaticus -secondary to acute asthma exacerbation -CXR: No active disease noted( my interpretation) F/U with official report -s/p Duoneb, methylprednisone, Mg in Ed -Admit Telemetry -O2 nc PRN -Duoneb q4h -Prednisone 40 mg BID -Symbicort - Singulair 10 mg PO daily 2) Cough -WBC: 15.5 w/ left shift can be secondary to steroids vs bronchitis --CXR: F/U with official chest x ray - Azithromycin x 1 dose in er. Continue with Azithromycin daily -f/u cbc, CXR 3) DVT Prophylaxis -Lovenox 40 mg sc daily
[2017-09-26] MEDS: Fluticasone-Salmeterol 250-50mcg Diskus IH SCH (22:00)
[2017-09-27] MEDS ORDERED: Albuterol-Ipratrop 3 mg / 0.5 (3 ml) UD INH SCH ×2 (02:00)
[2017-09-27 05:45] LABS: BASO % 0.3 % (0.0-2.0); EOS % 0.2 % (0.0-4.0); HEMOGLOBIN 12.9 g/dL (12.0-16.0); LYMPH # 0.7 K/uL (1.0-4.3); LYMPH % 5.2 % (20.0-40.0); MEAN CELL VOLUME 98.2 fl (81.0-99.0); MEAN CORPUSCULAR HEMOGLOBIN 33.1 pg (27.0-31.0); MEAN CORPUSCULAR HGB CONC 33.7 g/dL (33.0-37.0); MEAN PLATELET VOLUME 8.7 fl (7.2-11.7); MONO # 0.2 K/uL (0.0-0.8); MONO % 1.2 % (0.0-10.0); NEUT # 11.9 K/uL (1.8-7.0); NEUT % 93.1 % (50.0-75.0); PLATELET COUNT 314 K/uL (130-400); RBC 3.91 Mil/uL (3.80-5.20); RED CELL DISTRIBUTION WIDTH 13.4 % (11.5-14.5); WHITE BLOOD COUNT 12.8 K/uL (4.8-10.8)
[2017-09-27] MEDS ORDERED: PRO AIR HFA 8.5GM INHALER(FOR OR USE ONLY) IH PRN (07:00)
[2017-09-27] MEDS: Albuterol-Ipratrop 3 mg / 0.5 (3 ml) UD INH SCH ×2 (07:36→13:22)
[2017-09-27 07:59] VITALS: RESP 18
[2017-09-27] MEDS: Fluticasone-Salmeterol 250-50mcg Diskus IH SCH (08:49)
[2017-09-27] MEDS ORDERED: Azithromycin 500 MG in Sodium Chloride 0.9% 250 ML IVPB SCH (09:00)
[2017-09-27] MEDS ORDERED: Enoxaparin 40 mg Syringe SC SCH (09:00)
--- NOTE | 2017-09-27 10:46 | RAD ---
HISTORY: sob COMPARISON: Chest radiographs 05/01/2017. TECHNIQUE: Chest PA and lateral FINDINGS: LUNGS: No active pulmonary disease. PLEURA: No significant pleural effusion identified. No pneumothorax apparent. CARDIOVASCULAR: Normal. OSSEOUS STRUCTURES: No significant abnormalities. VISUALIZED UPPER ABDOMEN: Normal. OTHER FINDINGS: None. IMPRESSION: No interval acute cardiopulmonary disease appreciated.
[2017-09-27 11:04] LABS: EOSINOPHIL 1 % (0-7); LYMPHOCYTE 5 % (20-50); MONOCYTE 3 % (0-10); NEUTROPHIL 91 % (42-75); TOTAL CELLS COUNTED 100
[2017-09-27 11:05] LABS: ANISOCYTOSIS SLIGHT; OVALOCYTES SLIGHT; PLATELET ESTIMATE NORMAL (NORMAL)
[2017-09-27 11:06] LABS: LARGE PLATELETS PRESENT
--- NOTE | 2017-09-27 11:08 | CARD ---
APPROVED REPORT EKG Measurement Heart [id number] <Conclusion> Normal sinus rhythm Possible Left atrial enlargement Right bundle branch block Inferior infarct, age undetermined Abnormal ECG
--- NOTE | 2017-09-27 11:27 | CP.PCM.PN ---
Subjective - Date & Time of Evaluation Date of Evaluation: 09/27/17 Time of Evaluation: 11:27 - Subjective Subjective: No acute overnight events. Pt states that her breathing has significantly improved since admission. Denies chest pain, dyspnea, palpitations, chills and remains afebrile. Objective - Vital Signs/Intake and Output Vital Signs (last 24 hours): Temp Pulse Resp BP Pulse Ox 97.8 F 71 18 125/69 97 09/27/17 07:58 09/27/17 07:58 09/27/17 07:58 09/27/17 07:58 09/27/17 07:58 - Medications Medications: Current Medications Albuterol Sulfate (Proair Hfa) 2 puff IH Q6H PRN PRN Reason: Shortness of Breath Albuterol/Ipratropium (Duoneb 3 Mg/0.5 Mg (3 Ml) Ud) 3 ml INH RQ6 [facility] Last Admin: 09/27/17 07:36 Dose: 3 ml Enoxaparin Sodium (Lovenox) 40 mg SC DAILY [facility] PRN Reason: Protocol Last Admin: 09/27/17 08:49 Dose: 40 mg Montelukast Sodium (Singulair) 10 mg PO DAILY [facility] Last Admin: 09/27/17 08:48 Dose: 10 mg Prednisone (Prednisone Tab) 40 mg PO BID [facility] Last Admin: 09/27/17 08:48 Dose: 40 mg Fluticasone/Salmeterol (Advair Diskus 250/50) 1 puff IH Q12 [facility] Last Admin: 09/27/17 08:49 Dose: 1 puff - Labs Labs: 09/27/17 04:20 09/26/17 18:54 PT 11.7 Seconds (9.8-13.1) 09/26/17 18:54 INR 1.1 (0.9-1.2) 09/26/17 18:54 APTT 35.6 Seconds (25.6-37.1) 09/26/17 18:54 - Constitutional Appears: No Acute Distress - Head Exam Head Exam: NORMAL INSPECTION - Eye Exam Eye Exam: EOMI - ENT Exam ENT Exam: Mucous Membranes Moist - Respiratory Exam Respiratory Exam: Decreased Breath Sounds (in the lower lobes ), NORMAL BREATHING PATTERN (decrease air sounds in the lower lobes). absent: Wheezes - Cardiovascular Exam Cardiovascular Exam: REGULAR RHYTHM, +S1, +S2 - GI/Abdominal Exam GI & Abdominal Exam: Soft, Normal Bowel Sounds. absent: Tenderness - Extremities Exam Extremities Exam: Normal Inspection. absent: Pedal Edema - Neurological Exam Neurological Exam: Alert, Awake, Oriented x3 - Psychiatric Exam Psychiatric exam: Normal Affect, Normal Mood Assessment and Plan - Assessment and Plan (Free Text) Assessment: Assessment/Plan: 61 YO Female with PMHx of Asthma, Arthritis, Vit D deficiency is admitted for acute asthma exacerbation, status asthmaticus. Status Asthmaticus -improving -likely 2/2 to acute asthma exacerbation due to URI -CXR: No active disease -s/p Duoneb, methylprednisone, Mg in ED -decrease Duoneb q6, Prednisone 40mg daily -c/w home meds Prediabetes -HbA1c 6.3 (12/2016) -ACHS 209 this AM -evavated glucose likely multifactoral -Due to BMI and HbA1c level, will start pt on Metformin 500mg PO BID -ACHS, f/u HbA1c Restrictive pattern lung disease -PFTs reviewed, 06/25/17 -mild restrictive pattern noted -will benefit from outpatient pulmonary workup Leukocytosis -acute, downtrending 12.8 today -likely 2/2 to steroids -CXR: F/U with official chest x ray -s/p Azithromycin x 1 dose in ER 3) DVT Prophylaxis -Lovenox 40 mg sc daily
[2017-09-27] MEDS ORDERED: Glucagon Recombinant 1 mg Inj IM PRN (11:33)
[2017-09-27] MEDS ORDERED: Dextrose 50% SYRINGE Inj (50 ml) IV PRN (11:33)
[2017-09-27 12:01] VITALS: BP 144/65; PULSE 94; TEMP 98.2
[2017-09-27 13:36] VITALS: O2SAT 97
--- NOTE | 2017-09-27 13:39 | CP.PCM.DIS ---
Provider - Provider Date of Admission: 09/26/17 20:03 Attending physician: Antonia Burnett MD Time Spent in preparation of Discharge (in minutes): 20 Hospital Course - Lab Results Lab Results: Most Recent Lab Values WBC 12.8 K/uL (4.8-10.8) H 09/27/17 04:20 RBC 3.91 Mil/uL (3.80-5.20) 09/27/17 04:20 Hgb 12.9 g/dL (12.0-16.0) 09/27/17 04:20 Hct 38.4 % (34.0-47.0) 09/27/17 04:20 MCV 98.2 fl (81.0-99.0) 09/27/17 04:20 MCH 33.1 pg (27.0-31.0) H 09/27/17 04:20 MCHC 33.7 g/dL (33.0-37.0) 09/27/17 04:20 RDW 13.4 % (11.5-14.5) 09/27/17 04:20 Plt Count 314 K/uL (130-400) 09/27/17 04:20 MPV 8.7 fl (7.2-11.7) 09/27/17 04:20 Neut % (Auto) 93.1 % (50.0-75.0) H 09/27/17 04:20 Lymph % (Auto) 5.2 % (20.0-40.0) L 09/27/17 04:20 [place] % (Auto) 1.2 % (0.0-10.0) 09/27/17 04:20 Eos % (Auto) 0.2 % (0.0-4.0) 09/27/17 04:20 Baso % (Auto) 0.3 % (0.0-2.0) 09/27/17 04:20 Neut # (Auto) 11.9 K/uL (1.8-7.0) H 09/27/17 04:20 Lymph # (Auto) 0.7 K/uL (1.0-4.3) L 09/27/17 04:20 [place] # (Auto) 0.2 K/uL (0.0-0.8) 09/27/17 04:20 Eos # (Auto) 0.0 K/uL (0.0-0.7) 09/27/17 04:20 Baso # (Auto) 0.0 K/uL (0.0-0.2) 09/27/17 04:20 Neutrophils % (Manual) 91 % (42-75) H 09/27/17 04:20 Band Neutrophils % 1 % (0-2) 09/26/17 18:54 Lymphocytes % (Manual) 5 % (20-50) L 09/27/17 04:20 Reactive Lymphs % [employer] 09/26/17 18:54 Monocytes % (Manual) 3 % (0-10) 09/27/17 04:20 Eosinophils % (Manual) 1 % (0-7) 09/27/17 04:20 Platelet Estimate Normal (NORMAL) 09/27/17 04:20 Large Platelets Present 09/27/17 04:20 RBC Morphology Normal (NORMAL) 09/26/17 18:54 Anisocytosis (manual) Slight 09/27/17 04:20 Ovalocytes Slight 09/27/17 04:20 PT 11.7 Seconds (9.8-13.1) 09/26/17 18:54 INR 1.1 (0.9-1.2) 09/26/17 18:54 APTT 35.6 Seconds (25.6-37.1) 09/26/17 18:54 Sodium 143 mmol/l (132-148) 09/26/17 18:54 Potassium 4.1 MMOL/L (3.6-5.0) 09/26/17 18:54 Chloride 104 mmol/L (98-107) 09/26/17 18:54 Carbon Dioxide 29 mmol/L (22-30) 09/26/17 18:54 Anion Gap 14 (10-20) 09/26/17 18:54 BUN 21 mg/dl (7-17) H 09/26/17 18:54 Creatinine 0.5 mg/dl (0.7-1.2) L 09/26/17 18:54 Est GFR ( Amer) > 60 09/26/17 18:54 Est GFR (Non-Af Amer) > 60 09/26/17 18:54 POC Glucose (mg/dL) 276 mg/dL (65-110) H 09/27/17 11:30 Random Glucose 124 mg/dL (65-105) H 09/26/17 18:54 Hemoglobin A1c 5.7 % (4.2-6.5) 09/27/17 04:20 Calcium 9.9 mg/dL (8.4-10.2) 09/26/17 18:54 Phosphorus 3.2 mg/dl (2.5-4.5) 09/26/17 18:54 Magnesium 2.0 MG/DL (1.6-2.3) 09/26/17 18:54 Total Bilirubin 0.6 mg/dl (0.2-1.3) 09/26/17 18:54 AST 25 U/L (14-36) 09/26/17 18:54 ALT 38 U/L (9-52) 09/26/17 18:54 Alkaline Phosphatase 24 U/L (38-126) L D 09/26/17 18:54 Troponin I < 0.0120 ng/mL (0.00-0.120) 09/26/17 18:54 NT-Pro-B Natriuret Pep 49.5 pg/ml (0-900) 09/26/17 18:54 Total Protein 8.1 G/DL (6.3-8.2) 09/26/17 18:54 Albumin 4.4 g/dL (3.5-5.0) 09/26/17 18:54 Globulin 3.7 gm/dL (2.2-3.9) 09/26/17 18:54 Albumin/Globulin Ratio 1.2 (1.0-2.1) 09/26/17 18:54 - Hospital Course Hospital Course: 61 YO Female with PMHx of Asthma, Arthritis, Vit D deficiency is admitted for acute asthma exacerbation. Pt is doing well this AM, wants to go home. Pt remains hemodynamically stable, breathing comfortably in room air. Pt is prediabetic with (HbA1c 5.7), and BMI 32 will benefit from PO hyperglycemic meds. Started on Metformin 500mg BID and continue PO steriods x 3 more days. Will d/c pt home with follow up in [facility] 10/04/17 9:00 Dr. Dominguez. Of note, pt would benefit from outpatient pulmonary follow up; PFTs (06/2017) sig for restrictive pattern. New Meds: metFORMIN [glucOPHAGE] 500 mg PO BIDWM #60 tab predniSONE [predniSONE Tab] 40 mg PO DAILY 3 Days #6 tab Discharge Exam - Head Exam Head Exam: NORMAL INSPECTION, NORMOCEPHALIC - Eye Exam Eye Exam: EOMI, Normal appearance - ENT Exam ENT Exam: Mucous Membranes Moist - Respiratory Exam Respiratory Exam: Wheezes (mild wheezing), NORMAL BREATHING PATTERN - Cardiovascular Exam Cardiovascular Exam: REGULAR RHYTHM, +S1, +S2 - GI/Abdominal Exam GI & Abdominal Exam: Normal Bowel Sounds, Soft. absent: Tenderness - Extremities Exam Extremities exam: full ROM, normal inspection - Back Exam Back exam: NORMAL INSPECTION - Neurological Exam Neurological exam: Alert, Oriented x3 - Psychiatric Exam Psychiatric exam: Normal Affect, Normal Mood Discharge Plan - Discharge Medications Prescriptions: Albuterol HFA [Ventolin HFA 90 mcg/actuation (8 g)] 2 puff IH [id number] #1 inhaler Budesonide/Formoterol Fumarate [Symbicort 160-4.5 Mcg Inhaler] 2 puff IH BID #1 hfa.aer.ad metFORMIN [glucOPHAGE] 500 mg PO BIDWM #60 tab Montelukast [Singulair] 10 mg PO DAILY #30 tab predniSONE [predniSONE Tab] 40 mg PO DAILY 3 Days #6 tab - Follow Up Plan Condition: GOOD Disposition: HOME/ ROUTINE Patient education suggested?: Yes Instructions: Asthma (DC), Asthma, Adult (DC) Additional Instructions: Follow up in [facility] 10/04/17 9:00 Dr. Dominguez Referrals: [facility] [Outside]
== END 2017-09-27 16:10 | disposition home or self-care (01) ==
LOC: H.ER 18:01 → H.ERHOLD 20:03 → H.TEL 22:08
PROVIDERS: ADMIT Family Medicine; ATTEND Family Medicine
DX: J44.0 Chronic obstructive pulmonary disease with (acute) lower respiratory infection (principal); J20.9 Acute bronchitis, unspecified; J45.902 Unspecified asthma with status asthmaticus; E55.9 Vitamin D deficiency, unspecified; M19.90 Unspecified osteoarthritis, unspecified site; Z68.32 Body mass index [BMI] 32.0-32.9, adult; Z79.51 Long term (current) use of inhaled steroids; Z79.84 Long term (current) use of oral hypoglycemic drugs; Z79.899 Other long term (current) drug therapy; Z82.5 Family history of asthma and other chronic lower respiratory diseases; R06.03 Acute respiratory distress; E11.9 Type 2 diabetes mellitus without complications
CPT/HCPCS: 36415; 71046; 80053; 82948; 83036; 83735; 83880; 84100; 84484; 85025; 85610; 85730; 87040; 93005; 94150; 94640; 96372; 96374; 96375; 99285; G0378; J0456; J1650; J2930

== ENCOUNTER 2018-01-11 20:22 | Observation (INO) | payer MEDICAID, SELFPAY ==
[2018-01-11 20:22] VITALS: BMI 37.1
[2018-01-11 21:09] VITALS: RESP 18
[2018-01-11] MEDS ORDERED: Albuterol-Ipratrop 3 mg / 0.5 (3 ml) UD IH STA ×2 (21:39→23:03)
--- NOTE | 2018-01-11 21:43 | ED PDOC ---
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 Associated back pain. Patient states symptoms similar to previous asthma exacerbations, no relief with symbicort and albuterol inhalers at home. Denies fever, nasal congestion/drainage, chest pain, palpitations, leg pain/swelling, recent travel. Past Medical History Reviewed: Historical Data, Nursing Documentation, Vital Signs Vital Signs: Last Vital Signs Temp 97.9 F 01/11/18 20:49 Pulse 63 01/11/18 21:08 Resp 18 01/11/18 21:08 BP 151/78 H 01/11/18 20:49 Pulse Ox 95 01/11/18 21:08 - Medical History PMH: Asthma Denies: HIV, Chronic Kidney Disease - Surgical History Surgical History: No Surg Hx - Family History Family History: States: Unknown Family Hx - Home Medications Home Medications: Ambulatory Orders Medication Instructions Recorded Albuterol HFA [Ventolin HFA 90 2 puff IH [id number] #1 inhaler 09/27/17 mcg/actuation (8 g)] Albuterol HFA [Ventolin HFA 90 2 puff IH [id number] #1 puff 09/27/17 mcg/actuation (8 g)] Budesonide/Formoterol Fumarate 2 puff IH DAILY 30 Days #1 aer 09/27/17 [Symbicort] MetFORMIN [glucoPHAGE] 500 mg PO BID #60 tab 09/27/17 Montelukast Sodium [Singulair] 10 mg PO DAILY #30 tablet 09/27/17 Montelukast [Singulair] 10 mg PO DAILY #30 tab 09/27/17 predniSONE [Prednisone] 40 mg PO DAILY 3 Days #6 tab 09/27/17 - Allergies Allergies/Adverse Reactions: Allergies Allergy/AdvReac Type Severity Reaction Status Date / Time No Known Allergies Allergy Verified 01/11/18 20:49 Review of Systems ROS Statement: Except As Marked, All Systems Reviewed And Found Negative Respiratory: Positive for: Cough, Shortness of Breath, Wheezing Physical Exam - Reviewed Nursing Documentation Reviewed: Yes Vital Signs Reviewed: Yes - Physical Exam Appears: Positive for: Well, Non-toxic, No Acute Distress Head Exam: Positive for: ATRAUMATIC, NORMAL INSPECTION, NORMOCEPHALIC Skin: Positive for: Normal Color Eye Exam: Positive for: Normal appearance ENT: Positive for: Normal ENT Inspection Cardiovascular/Chest: Positive for: Regular Rate, Rhythm Respiratory: Positive for: Rhonchi, Wheezing Gastrointestinal/Abdominal: Positive for: Normal Exam Back: Positive for: Normal Inspection Extremity: Positive for: Normal ROM Neurologic/Psych: Positive for: Alert, Oriented (x3) - Laboratory Results Result Diagrams: 01/11/18 22:19 01/11/18 22:19 - ECG ECG: Positive for: Viewed By Me (reviewed by ED attending) ECG Rhythm: Positive for: Sinus Rhythm O2 Sat by Pulse Oximetry: 95 - Radiology X-Ray: Viewed By Me X-Ray Interpretation: Infiltrates - Progress ED Course And Treament: labs, ekg, chest xray, duonebs, IV solumedrol On re-eval, patient still with cough/wheezing. O2 90-93% room air IV mag sulfate, IV zithromax, IV rocephin ordered Disposition - Clinical Impression Clinical Impression: Asthma exacerbation, Pneumonia - Patient ED Disposition Is Patient to be Admitted: Yes - Disposition Disposition Time: 00:28 Condition: FAIR
[2018-01-11] MEDS ORDERED: Albuterol-Ipratrop 3 mg / 0.5 (3 ml) UD ONE ×2 (21:52→23:07)
[2018-01-11 22:30] LABS: BASO # 0.3 K/uL (0.0-0.2); BASO % 1.9 % (0.0-2.0); EOS # 1.6 K/uL (0.0-0.7); EOS % 12.1 % (0.0-4.0); HEMOGLOBIN 14.3 g/dL (12.0-16.0); LYMPH # 3.1 K/uL (1.0-4.3); MEAN CELL VOLUME 98.7 fl (81.0-99.0); MEAN CORPUSCULAR HEMOGLOBIN 33.5 pg (27.0-31.0); MEAN CORPUSCULAR HGB CONC 33.9 g/dL (33.0-37.0); MEAN PLATELET VOLUME 8.4 fl (7.2-11.7); MONO % 7.8 % (0.0-10.0); NEUT # 7.3 K/uL (1.8-7.0); NEUT % 55.2 % (50.0-75.0); RBC 4.27 Mil/uL (3.80-5.20); RED CELL DISTRIBUTION WIDTH 13.2 % (11.5-14.5); WHITE BLOOD COUNT 13.3 K/uL (4.8-10.8)
[2018-01-11 22:39] LABS: ALB/GLOB RATIO 1.3 (1.0-2.1); ALBUMIN 4.4 g/dL (3.5-5.0); ALT/SGPT 28 U/L (9-52); AST/SGOT 23 U/L (14-36); BLOOD UREA NITROGEN 18 mg/dl (7-17); CALCIUM 10.4 mg/dL (8.4-10.2); GFR NON-AFRICAN AMERICAN > 60
[2018-01-12] MEDS ORDERED: Magnesium Sulfate 2 gm/50 ml 2 GM/50 ML BAG IVPB STA (00:22)
[2018-01-12] MEDS ORDERED: Azithromycin 500 MG in NS 250 ML IVPB STA (00:23)
[2018-01-12 01:20] LABS: VENOUS BLOOD GAS BASE EXCESS 2.5 mmol/L (0.0-2.0); VENOUS BLOOD GAS PCO2 48 mmHg (40-60); VENOUS BLOOD GAS PO2 32 mm/Hg (30-55); VENOUS BLOOD PH 7.38 (7.32-7.43)
[2018-01-12] MEDS ORDERED: cefTRIAXone (Rocephin) 1 gm Inj ONE (01:38)
[2018-01-12] MEDS ORDERED: Magnesium Sulfate 2 gm/50 ml 2 GM/50 ML BAG ONE (02:41)
[2018-01-12] MEDS ORDERED: Albuterol-Ipratrop 3 mg / 0.5 (3 ml) UD INH PRN (03:15)
--- NOTE | 2018-01-12 03:17 | CP.PCM.HP ---
<Frederick Ornelas - Last Filed: 01/12/18 03:57> History of Present Illness - History of Present Illness History of Present Illness: 61 YO F w/ PMH of asthma presents to the ED with shortness of breath and chest tightness which has been worsening for the past week. She denies any triggering exposure or recent illnesses. She reports using her albuterol inhaler 4-6 times per day, and today it didnt seem to improve symptoms at all, prompting her to come in for evaluation. She denies any fevers/chills, productive cough, dizziness/weakness, CP/palpitations, N/V/D/C, urinary symptoms, numbnes s/tingling. PMD: [facility] PMHx: asthma, low back pain Allergies: NKDA Med: Albuterol, Sybicort, singulair PSH: Denies any smoking or alcohol usage Psurghx: denies Present on Admission - Present on Admission Any Indicators Present on Admission: No History of DVT/PE: No History of Uncontrolled Diabetes: No Urinary Catheter: No Decubitus Ulcer Present: No Review of Systems - Review of Systems Review of Systems: as per HPI Past Patient History - Infectious Disease Hx of Infectious Diseases: None - Past Medical History & Family History Past Medical History?: Yes - Past Social History Smoking Status: Former Smoker - CARDIAC Hx Cardiac Disorders: No - PULMONARY Hx Asthma: Yes - NEUROLOGICAL Hx Neurological Disorder: No - HEENT Hx HEENT Problems: No - RENAL Hx Chronic Kidney Disease: No - ENDOCRINE/METABOLIC Hx Endocrine Disorders: Yes 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) - HEMATOLOGICAL/ONCOLOGICAL Hx Human Immunodeficiency Virus (HIV): No - INTEGUMENTARY Hx Dermatological Problems: No - MUSCULOSKELETAL/RHEUMATOLOGICAL Hx Musculoskeletal Disorders: No - GASTROINTESTINAL Hx Gastrointestinal Disorders: No - GENITOURINARY/GYNECOLOGICAL Hx Genitourinary Disorders: No - PSYCHIATRIC Hx Psychophysiologic Disorder: No Hx Substance Use: No - SURGICAL HISTORY Hx Surgeries: No - ANESTHESIA Hx Anesthesia: No Hx Anesthesia Reactions: No Meds Allergies/Adverse Reactions: Allergies Allergy/AdvReac Type Severity Reaction Status Date / Time No Known Allergies Allergy Verified 01/11/18 20:49 Physical Exam - Constitutional Appears: Non-toxic, No Acute Distress Additional comments: sitting up comfortably, speakign in full sentences - Head Exam Head Exam: ATRAUMATIC, NORMOCEPHALIC - Eye Exam Eye Exam: EOMI. absent: Scleral icterus Pupil Exam: PERRL - ENT Exam ENT Exam: Mucous Membranes Moist - Neck Exam Neck exam: Negative for: Lymphadenopathy - Respiratory Exam Respiratory Exam: Decreased Breath Sounds, Prolonged Expiratory Phase, Wheezes. absent: Rales, Rhonchi, NORMAL BREATHING PATTERN - Cardiovascular Exam Cardiovascular Exam: REGULAR RHYTHM, RRR, +S1, +S2. absent: Tachycardia, JVD, Rubs, Systolic Murmur - GI/Abdominal Exam GI & Abdominal Exam: Normal Bowel Sounds, Soft. absent: Tenderness - Extremities Exam Extremities exam: Positive for: normal capillary refill, normal inspection, pedal pulses present. Negative for: pedal edema - Neurological Exam Neurological exam: Alert, CN II-XII Intact, Oriented x3 - Psychiatric Exam Psychiatric exam: Normal Affect, Normal Mood - Skin Skin Exam: Dry, Intact, Normal Color, Warm Results - Vital Signs Recent Vital Signs: Last Vital Signs Temp 98.5 F 01/11/18 23:36 Pulse 83 01/11/18 23:36 Resp 18 01/11/18 23:36 BP 145/85 01/11/18 23:36 Pulse Ox 95 01/12/18 00:28 - Labs Result Diagrams: 01/11/18 22:19 01/11/18 22:19 Labs: Laboratory Results - last 24 hr 01/11/18 01/11/18 01/12/18 22:19 22:19 01:15 WBC 13.3 H RBC 4.27 Hgb 14.3 Hct 42.1 MCV 98.7 MCH 33.5 H MCHC 33.9 RDW 13.2 Plt Count 313 MPV 8.4 Neut % (Auto) 55.2 Lymph % (Auto) 23.0 [place] % (Auto) 7.8 Eos % (Auto) 12.1 H Baso % (Auto) 1.9 Neut # (Auto) 7.3 H Lymph # (Auto) 3.1 [place] # (Auto) 1.0 H Eos # (Auto) 1.6 H Baso # (Auto) 0.3 H pO2 32 VBG pH 7.38 VBG pCO2 48 VBG HCO3 25.9 VBG Total CO2 29.9 H VBG O2 Sat (Calc) 78.2 H VBG Base Excess 2.5 H VBG Potassium 3.9 Glucose 157 H Lactate 1.4 FiO2 21.0 Sodium 143 138.0 Potassium 4.1 Chloride 105 107.0 Carbon Dioxide 30 Anion Gap 12 BUN 18 H Creatinine 0.7 Est GFR ( Amer) > 60 Est GFR (Non-Af Amer) > 60 Random Glucose 102 Calcium 10.4 H Total Bilirubin 0.3 AST 23 ALT 28 Alkaline Phosphatase 60 Total Protein 7.8 Albumin 4.4 Globulin 3.4 Albumin/Globulin Ratio 1.3 Venous Blood Potassium 3.9 Assessment & Plan - Assessment and Plan (Free Text) Assessment: 62 y/o female with PMHx of asthma admitted for acute asthma exacerbation. Plan: 1) Acute Asthma Exacerbation -Duo-nebs Q4H -Solu-medrol 40mg BID -Start Pulmi-kb INH -monitor vitals -am labs 2) Leukocytosis -rule out underlying pneumonia -afebrile -13.4 -doxycycline 100mg Q12H -repeat AM labs 3) Eosinophilia -1.6 -IgE pending 4) Prophylaxis -Lovenox 40mg SC QD 5) Code Status -full code <Valerio Calvert P - Last Filed: 01/12/18 06:38> Results - Vital Signs Recent Vital Signs: Last Vital Signs Temp 97.6 F 01/12/18 05:06 Pulse 63 01/12/18 05:06 Resp 18 01/12/18 05:06 BP 132/75 01/12/18 05:06 Pulse Ox 97 01/12/18 05:06 - Labs Result Diagrams: 01/11/18 22:19 01/11/18 22:19 Labs: Laboratory Results - last 24 hr 01/11/18 01/11/18 01/12/18 22:19 22:19 01:15 WBC 13.3 H RBC 4.27 Hgb 14.3 Hct 42.1 MCV 98.7 MCH 33.5 H MCHC 33.9 RDW 13.2 Plt Count 313 MPV 8.4 Neut % (Auto) 55.2 Lymph % (Auto) 23.0 [place] % (Auto) 7.8 Eos % (Auto) 12.1 H Baso % (Auto) 1.9 Neut # (Auto) 7.3 H Lymph # (Auto) 3.1 [place] # (Auto) 1.0 H Eos # (Auto) 1.6 H Baso # (Auto) 0.3 H pO2 32 VBG pH 7.38 VBG pCO2 48 VBG HCO3 25.9 VBG Total CO2 29.9 H VBG O2 Sat (Calc) 78.2 H VBG Base Excess 2.5 H VBG Potassium 3.9 Glucose 157 H Lactate 1.4 FiO2 21.0 Sodium 143 138.0 Potassium 4.1 Chloride 105 107.0 Carbon Dioxide 30 Anion Gap 12 BUN 18 H Creatinine 0.7 Est GFR ( Amer) > 60 Est GFR (Non-Af Amer) > 60 Random Glucose 102 Calcium 10.4 H Total Bilirubin 0.3 AST 23 ALT 28 Alkaline Phosphatase 60 Total Protein 7.8 Albumin 4.4 Globulin 3.4 Albumin/Globulin Ratio 1.3 Venous Blood Potassium 3.9 Attending/Attestation - Attestation I have personally seen and examined this patient.: Yes I have fully participated in the care of the patient.: Yes I have reviewed all pertinent clinical information: Yes Notes (Text): Assessment Asthma exacerbation, no clear precipitating factor or gerd Eosinophilia Plan Systemic and inhaled steroids, nebs Doxycycline IGE level if normal then w/u for eosinophilia Gi/DVT prophylaxis See orders for detail.
[2018-01-12] MEDS ORDERED: Azithromycin 500 MG IV IVPB ONE (03:26)
--- NOTE | 2018-01-12 06:47 | CARD ---
APPROVED REPORT Date of service: 01/11/2018 EKG Measurement Heart [id number] <Conclusion> Normal sinus rhythm Right bundle branch block Inferior infarct, age undetermined Abnormal ECG
[2018-01-12 08:00] VITALS: BP 112/56; PULSE 59; TEMP 97.7; O2SAT 95
[2018-01-12] MEDS ORDERED: Budesonide 0.25 mg/2 ml Inhal Susp UD INH SCH (08:00)
[2018-01-12] MEDS ORDERED: MethylPREDNISolone 40 mg Vial IVP SCH (09:00)
[2018-01-12] MEDS ORDERED: methylPREDNISolone 40 MG in Sodium Chloride 0.9% 50 ML IVPB SCH (09:00)
--- NOTE | 2018-01-12 10:41 | RAD ---
HISTORY: Cough COMPARISON: 09/26/2017. TECHNIQUE: Chest PA and lateral FINDINGS: LINES AND TUBES: None. LUNG AND PLEURA: The lungs are well inflated and clear. No pleural effusion or pneumothorax. HEART AND MEDIASTINUM: The heart is not enlarged. The hilar and mediastinal contours are within normal limits. SKELETAL STRUCTURES: The bony structures are within normal limits for the patient's age. VISUALIZED UPPER ABDOMEN: Normal. OTHER FINDINGS: None. IMPRESSION: No active pulmonary disease.
--- NOTE | 2018-01-12 15:14 | CP.PCM.DIS ---
<Nancie Gama - Last Filed: 01/12/18 16:48> Provider - Provider Date of Admission: 01/12/18 00:25 Attending physician: Valerio Calvert MD Time Spent in preparation of Discharge (in minutes): 40 Hospital Course - Lab Results Lab Results: Most Recent Lab Values WBC 13.3 K/uL (4.8-10.8) H 01/11/18 22:19 RBC 4.27 Mil/uL (3.80-5.20) 01/11/18 22:19 Hgb 14.3 g/dL (12.0-16.0) 01/11/18 22:19 Hct 42.1 % (34.0-47.0) 01/11/18 22: MCV 98.7 fl (81.0-99.0) 01/11/18 22:19 MCH 33.5 pg (27.0-31.0) H 01/11/18 22:19 MCHC 33.9 g/dL (33.0-37.0) 01/11/18 22:19 RDW 13.2 % (11.5-14.5) 01/11/18 22:19 Plt Count 313 K/uL (130-400) 01/11/18 22:19 MPV 8.4 fl (7.2-11.7) 01/11/18 22:19 Neut % (Auto) 55.2 % (50.0-75.0) 01/11/18 22: Lymph % (Auto) 23.0 % (20.0-40.0) 01/11/18 22: [place] % (Auto) 7.8 % (0.0-10.0) 01/11/18 22:19 Eos % (Auto) 12.1 % (0.0-4.0) H 01/11/18 22:19 Baso % (Auto) 1.9 % (0.0-2.0) 01/11/18: Neut # (Auto) 7.3 K/uL (1.8-7.0) H 01/11/18 22:19 Lymph # (Auto) 3.1 K/uL (1.0-4.3) 01/11/18 22:19 [place] # (Auto) 1.0 K/uL (0.0-0.8) H 01/11/18 22:19 Eos # (Auto) 1.6 K/uL (0.0-0.7) H 01/11/18 22:19 Baso # (Auto) 0.3 K/uL (0.0-0.2) H 01/11/18 22:19 pO2 32 mm/Hg (30-55) 01/12/18 01:15 VBG pH 7.38 (7.32-7.43) 01/12/18 01:15 VBG pCO2 48 mmHg (40-60) 01/12/18 01:15 VBG HCO3 25.9 mmol/L 01/12/18 01:15 VBG Total CO2 29.9 mmol/L (22-28) H 01/12/18 01:15 VBG O2 Sat (Calc) 78.2 % (40-65) H 01/12/18 01:15 VBG Base Excess 2.5 mmol/L (0.0-2.0) H 01/12/18 01:15 VBG Potassium 3.9 mmol/L (3.6-5.2) 01/12/18 01:15 Sodium 138.0 mmol/L (132-148) 01/12/18 01:15 Chloride 107.0 mmol/L (98-107) 01/12/18 01:15 Glucose 157 mg/dL (65-105) H 01/12/18 01:15 Lactate 1.4 mmol/L (0.7-2.1) 01/12/18 01:15 FiO2 21.0 % 01/12/18 01:15 Sodium 143 mmol/l (132-148) 01/11/18 22:19 Potassium 4.1 MMOL/L (3.6-5.0) 01/11/18 22:19 Chloride 105 mmol/L (98-107) 01/11/18 22:19 Carbon Dioxide 30 mmol/L (22-30) 01/11/18 22:19 Anion Gap 12 (10-20) 01/11/18 22:19 BUN 18 mg/dl (7-17) H 01/11/18 22:19 Creatinine 0.7 mg/dl (0.7-1.2) 01/11/18 22:19 Est GFR ( Amer) > 60 01/11/18 22:19 Est GFR (Non-Af Amer) > 60 01/11/18 22:19 Random Glucose 102 mg/dL (65-105) 01/11/18 22: Calcium 10.4 mg/dL (8.4-10.2) H 01/11/18 22:19 Total Bilirubin 0.3 mg/dl (0.2-1.3) 01/11/18 22: AST 23 U/L (14-36) 01/11/18 22: ALT 28 U/L (9-52) 01/11/18 22: Alkaline Phosphatase 60 U/L (38-126) 01/11/18 22: Total Protein 7.8 G/DL (6.3-8.2) 01/11/18: Albumin 4.4 g/dL (3.5-5.0) 01/11/18: Globulin 3.4 gm/dL (2.2-3.9) 01/11/18: Albumin/Globulin Ratio 1.3 (1.0-2.1) 01/11/18 22: Venous Blood Potassium 3.9 mmol/L (3.6-5.2) 01/12/18 01:15 - Hospital Course Hospital Course: 61 y/o F with medical history of asthma presented to the ED with shortness of breath & chest tightness that progressively worsened x 1 week. She denied any fever, chills, cough, chest pain or palpitations. Patient was afebrile, WBC was 13.4, and patient was given antibiotics. Patient was also treated with duonebs, solumedrol, pulmicort, and magnesium. She was admitted, and this AM patient was seen sitting comfortably in chair without any acute distress. She was able to speak in full sentences without any difficulty breathing. Patient was discharged home on prednisone 40mg TID for 3 days & Doxycycline 100mg BID x 6 more days with continuation of her home medications and follow up with Dr. Toscano in [facility]. Discharge Exam - Head Exam Head Exam: ATRAUMATIC, NORMOCEPHALIC - Neck Exam Neck exam: Full Rom - Respiratory Exam Additional comments: minimal wheeze auscultated on posterior chest wall, but no rhonchi - Cardiovascular Exam Cardiovascular Exam: REGULAR RHYTHM, +S1, +S2 - GI/Abdominal Exam GI & Abdominal Exam: Normal Bowel Sounds, Soft. absent: Distended, Firm, Guarding - Neurological Exam Neurological exam: Alert, Oriented x3 - Psychiatric Exam Psychiatric exam: Normal Affect, Normal Mood - Skin Skin Exam: Dry, Intact Discharge Plan - Discharge Medications Prescriptions: RX: Doxycycline Monohydrate 100 mg PO Q12 6 Days tablet RX: Prednisone [Deltasone] 40 mg PO DAILY 3 Days tablet - Follow Up Plan Condition: FAIR Disposition: HOME/ ROUTINE Instructions: Asthma, Adult (DC) Additional Instructions: Follow up with PMD in 1-2 days. C/W home medications. Prescription provided: 7 days of doxycycline Prednisone 40 mg Daily Referrals: [facility] [Outside] Preethi Toscano MD [Resident] - <Endy Morales - Last Filed: 01/12/18 18:34> Provider - Provider Date of Admission: 01/12/18 00:25 Attending physician: Valerio Calvert MD Hospital Course - Lab Results Lab Results: Most Recent Lab Values WBC 13.3 K/uL (4.8-10.8) H 01/11/18 22:19 RBC 4.27 Mil/uL (3.80-5.20) 01/11/18 22:19 Hgb 14.3 g/dL (12.0-16.0) 01/11/18 22:19 Hct 42.1 % (34.0-47.0) 01/11/18 22:19 MCV 98.7 fl (81.0-99.0) 01/11/18 22:19 MCH 33.5 pg (27.0-31.0) H 01/11/18 22:19 MCHC 33.9 g/dL (33.0-37.0) 01/11/18 22:19 RDW 13.2 % (11.5-14.5) 01/11/18 22:19 Plt Count 313 K/uL (130-400) 01/11/18 22:19 MPV 8.4 fl (7.2-11.7) 01/11/18 22:19 Neut % (Auto) 55.2 % (50.0-75.0) 01/11/18 22: Lymph % (Auto) 23.0 % (20.0-40.0) 01/11/18 22:19 [place] % (Auto) 7.8 % (0.0-10.0) 01/11/18 22:19 Eos % (Auto) 12.1 % (0.0-4.0) H 01/11/18 22:19 Baso % (Auto) 1.9 % (0.0-2.0) 01/11/18 22:19 Neut # (Auto) 7.3 K/uL (1.8-7.0) H 01/11/18 22:19 Lymph # (Auto) 3.1 K/uL (1.0-4.3) 01/11/18 22:19 [place] # (Auto) 1.0 K/uL (0.0-0.8) H 01/11/18 22:19 Eos # (Auto) 1.6 K/uL (0.0-0.7) H 01/11/18 22:19 Baso # (Auto) 0.3 K/uL (0.0-0.2) H 01/11/18 22:19 pO2 32 mm/Hg (30-55) 01/12/18 01:15 VBG pH 7.38 (7.32-7.43) 01/12/18 01:15 VBG pCO2 48 mmHg (40-60) 01/12/18 01:15 VBG HCO3 25.9 mmol/L 01/12/18 01:15 VBG Total CO2 29.9 mmol/L (22-28) H 01/12/18 01:15 VBG O2 Sat (Calc) 78.2 % (40-65) H 01/12/18 01:15 VBG Base Excess 2.5 mmol/L (0.0-2.0) H 01/12/18 01:15 VBG Potassium 3.9 mmol/L (3.6-5.2) 01/12/18 01:15 Sodium 138.0 mmol/L (132-148) 01/12/18 01:15 Chloride 107.0 mmol/L (98-107) 01/12/18 01:15 Glucose 157 mg/dL (65-105) H 01/12/18 01:15 Lactate 1.4 mmol/L (0.7-2.1) 01/12/18 01:15 FiO2 21.0 % 01/12/18 01:15 Sodium 143 mmol/l (132-148) 01/11/18 22:19 Potassium 4.1 MMOL/L (3.6-5.0) 01/11/18 22:19 Chloride 105 mmol/L (98-107) 01/11/18 22:19 Carbon Dioxide 30 mmol/L (22-30) 01/11/18 22:19 Anion Gap 12 (10-20) 01/11/18 22:19 BUN 18 mg/dl (7-17) H 01/11/18 22:19 Creatinine 0.7 mg/dl (0.7-1.2) 01/11/18 22:19 Est GFR ( Amer) > 60 01/11/18 22:19 Est GFR (Non-Af Amer) > 60 01/11/18 22:19 Random Glucose 102 mg/dL (65-105) 01/11/18 22:19 Calcium 10.4 mg/dL (8.4-10.2) H 01/11/18 22:19 Total Bilirubin 0.3 mg/dl (0.2-1.3) 01/11/18 22:19 AST 23 U/L (14-36) 01/11/18 22:19 ALT 28 U/L (9-52) 01/11/18 22:19 Alkaline Phosphatase 60 U/L (38-126) 01/11/18 22:19 Total Protein 7.8 G/DL (6.3-8.2) 01/11/18 22:19 Albumin 4.4 g/dL (3.5-5.0) 01/11/18 22:19 Globulin 3.4 gm/dL (2.2-3.9) 01/11/18 22:19 Albumin/Globulin Ratio 1.3 (1.0-2.1) 01/11/18 22:19 Venous Blood Potassium 3.9 mmol/L (3.6-5.2) 01/12/18 01:15 Attending/Attestation - Attestation I have personally seen and examined this patient.: Yes I have fully participated in the care of the patient.: Yes I have reviewed all pertinent clinical information, including history, physical exam and plan: Yes Notes (Text): acute exacerbation of asthma follow up in clinic
== END 2018-01-12 16:30 | disposition home or self-care (01) ==
LOC: H.ER 20:22 → H.ERHOLD 01-12 00:25 → H.MEDSURG1 01-12 04:36
PROVIDERS: ADMIT Internal Medicine; ATTEND Internal Medicine
DX: J45.901 Unspecified asthma with (acute) exacerbation (principal); E11.9 Type 2 diabetes mellitus without complications; J44.9 Chronic obstructive pulmonary disease, unspecified; Z87.891 Personal history of nicotine dependence; Z79.84 Long term (current) use of oral hypoglycemic drugs
CPT/HCPCS: 36415; 71046; 80053; 82803; 85025; 87040; 93005; 94640; 96365; 96367; 96375; 96376; 99285; G0378; J0456; J0696; J2920; J2930

== ENCOUNTER 2018-04-09 11:06 | Observation (INO) | payer SELFPAY ==
[2018-04-09 11:06] VITALS: BMI 37.1
[2018-04-09] MEDS ORDERED: Albuterol 0.083% Inhal Sol (2.5 mg/3 mL) UD INH STA ×2 (11:58→14:22)
[2018-04-09] MEDS ORDERED: Albuterol-Ipratrop 3 mg / 0.5 (3 ml) UD INH STA ×3 (11:58→14:22)
[2018-04-09] MEDS ORDERED: Sodium Chloride 0.9% 1,000 ML IV ONE (12:00)
--- NOTE | 2018-04-09 12:06 | ED PDOC ---
HPI: SOB/CHF/COPD Time Seen by Provider: 04/09/18 11:53 Chief Complaint (Nursing): Shortness Of Breath Chief Complaint (Provider): SOB, Asthma History Per: Patient History/Exam Limitations: no limitations Onset/Duration Of Symptoms: Days (since 04/07/18) Current Symptoms Are (Timing): Other (worsening) Current Respiratory Medications: Albuterol, Other (Symbicort) Severity: Moderate Associated Symptoms: denies: Fever Additional Complaint(s): Patient is a 62 year old female with a history of asthma who presents for evaluation of shortness of breath since , 04/07/18. Patient reports associated chest tightness and cough. Patient reports no relief with Albuterol, last used two hours ago, and Symbicort, last used early this morning. Patient denies any history of intubations for her asthma but does report admissions, most recently in Fall 2017. Denies fever, headache, dizziness, chest pain, calf pain, leg swelling, N/V/D, abdominal pain, prolonged immobility, tobacco use. PMD: Gerardo Toscano Past Medical History Reviewed: Historical Data, Nursing Documentation, Vital Signs Vital Signs: Last Vital Signs Temp 98.5 F 04/09/18 11:09 Pulse 72 04/09/18 11:09 Resp 26 H 04/09/18 11:51 BP 143/73 04/09/18 11:09 Pulse Ox 95 04/09/18 11:09 - Medical History PMH: Asthma, Bronchitis, Pneumonia Other PMH: Pre-DM - Surgical History Surgical History: No Surg Hx - Family History Family History: States: Unknown Family Hx - Social History Current smoker - smoking cessation education provided: No - Home Medications Home Medications: Ambulatory Orders Medication Instructions Recorded Albuterol HFA [Ventolin HFA 90 2 puff IH [id number] #1 puff 09/27/17 mcg/actuation (8 g)] Budesonide/Formoterol Fumarate 2 puff IH DAILY 30 Days #1 aer 09/27/17 [Symbicort 160-4.5 Mcg Inhaler] MetFORMIN [glucoPHAGE] 500 mg PO BID #60 tab 09/27/17 Montelukast [Singulair] 10 mg PO DAILY #30 tab 09/27/17 Albuterol 0.083% [Albuterol 0.083% 2.5 mg NEB Q4 PRN 01/12/18 Inhal Francheska (2.5 mg/3 ml) UD] Doxycycline Monohydrate 100 mg PO Q12 6 Days tablet 01/12/18 Prednisone [Deltasone] 40 mg PO DAILY 3 Days tablet 01/12/18 Solifenacin Succinate [Vesicare] 5 mg PO DAILY 01/12/18 - Allergies Allergies/Adverse Reactions: Allergies Allergy/AdvReac Type Severity Reaction Status Date / Time No Known Allergies Allergy Verified 02/08/18 10:12 Curb-65 Severity Score - CURB-65 Severity Score Confusion: No Bun >19mg/dl (>7mmol/L): No Respiratory Rate greater than/equal to 30: No Systolic BP <90 or Diastolic BP less than/equal 60mmHg: No Age >64: No Curb-65 Score: 0 Percentage 30-day mortality: 0.6% Wells Criteria for PE - Wells Criteria for Pulmonary Embolism Clinical Signs and Symptoms of DVT: No P.E is #1 Diagnosis, or Equally Likely: No Heart Rate >100: No Immobilization at least 3 days;Surgery previous 4 weeks: No Previous, objectively diagnosed PE or DVT: No Hemoptysis: No Malignancy w/treatment within 6 months, or palliative: No Total Score: 0 Review of Systems ROS Statement: Except As Marked, All Systems Reviewed And Found Negative Respiratory: Positive for: Cough, Shortness of Breath, Wheezing, Other (chest tightness) Physical Exam - Reviewed Nursing Documentation Reviewed: Yes Vital Signs Reviewed: Yes - Physical Exam Comments: GENERALIZED APPEARANCE: Patient is awake, alert, oriented x3; in mild respiratory distress. SKIN: Warm, dry; (-) cyanosis. EYES: (-) conjunctival pallor. ENMT: Mucous membranes moist. Airway patent: (-) stridor. Pharynx:clear, uvula midline (-) swelling, (-) erythema. NECK:Supple, FROM (-) JVD (-) tenderness, (-) stiffness, (-) lymphadenopathy. CHEST AND RESPIRATORY: (+) tachypnea (+) bilateral inspiratory and expiratory wheezing; (-) rales, (-) rhonchi; breath sounds diminished bilaterally. Respirations labored, however able to speak in full sentences. HEART AND CARDIOVASCULAR: (-) irregularity ABDOMEN AND GI: Soft; (-) tenderness. EXTREMITIES: (-) deformity, (-) edema (-) calf tenderness. NEURO AND PSYCH: Mental status as above; (-) focal findings. Gait: steady. Speech: clear. (-) facial asymmetry (-) aphasia - Laboratory Results Result Diagrams: 04/09/18 12:40 04/09/18 12:40 - ECG O2 Sat by Pulse Oximetry: 95 (RA) Pulse Ox Interpretation: Normal (borderline) Medical Decision Making Medical Decision Making: Initial Impression: asthma exacerbation, SOB Plan: -EKG -IV access -CBC -CMP -BNP -Troponin -Solu-medrol 125mg IVP -Albuterol 2.5mg INH -Duoneb 3mL INH x2 -Nasal cannula oxygen 3L -Peak Flow -Braille Transcriber -1L NS bolus -CXR 2 views -Re-evaluation 1345 Troponin <0.01 BNP 40.3 CBC and CMP grossly unremarkable. 1425 CXR reviewed: lingular infiltrate as read by Mariya BENOIT and ED MD Oliveira Levaquin 750mg PO ordered. On re-evaluation, patient reports improvement of symptoms. Patient with scattered inspiratory wheezing; no respiratory distress. Additional Duoneb INH x1 and Albuterol INH x1 ordered. 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 Patient agreeable to 24 hour observation. Case discussed with Family Practice Resident Eloisa and with hospitalist, Dr Salazar. Arrangements made for tele 24 hours obs. Disposition - Clinical Impression Clinical Impression: CAP (community acquired pneumonia), Asthma exacerbation, Shortness of breath - Patient ED Disposition Is Patient to be Admitted: Yes Discussed With DrEliu: Abdirizak Salazar Doctor Will See Patient In The: Hospital Counseled Patient/Family Regarding: Studies Performed, Diagnosis - Disposition Disposition Time: 17:25 Condition: FAIR - Pt Status Changed To: Hospital Disposition Of: Observation (telemetry) - POA Present On Arrival: None Results - Lab Results Lab Results: 04/09/18 04/09/18 12:40 12:40 WBC 10.9 H RBC 4.15 Hgb 13.9 Hct 41.3 MCV 99.3 H MCH 33.4 H MCHC 33.7 RDW 13.6 Plt Count 321 MPV 8.7 Neut % (Auto) 53.0 Lymph % (Auto) 15.1 L Sac % (Auto) 7.1 Eos % (Auto) 23.5 H Baso % (Auto) 1.3 Neut # (Auto) 5.8 Lymph # (Auto) 1.7 Sac # (Auto) 0.8 Eos # (Auto) 2.6 H Baso # (Auto) 0.1 Neutrophils % (Manual) 48 Band Neutrophils % 1 Lymphocytes % (Manual) 18 L Reactive Lymphs % 1 H Monocytes % (Manual) 5 Eosinophils % (Manual) 25 H Basophils % (Manual) 2 Platelet Estimate Normal RBC Morphology Normal Sodium 142 Potassium 4.3 Chloride 107 Carbon Dioxide 26 Anion Gap 13 BUN 24 H Creatinine 0.5 L Est GFR ( Amer) > 60 Est GFR (Non-Af Amer) > 60 Random Glucose 94 Calcium 9.8 Total Bilirubin 0.6 AST 31 ALT 29 Alkaline Phosphatase 55 Troponin I < 0.0120 NT-Pro-B Natriuret Pep 40.3 Total Protein 7.5 Albumin 4.4 Globulin 3.1 Albumin/Globulin Ratio 1.4
[2018-04-09] MEDS ORDERED: Albuterol 0.083% Inhal Sol (2.5 mg/3 mL) UD ONE ×2 (12:30→14:53)
[2018-04-09] MEDS ORDERED: Albuterol-Ipratrop 3 mg / 0.5 (3 ml) UD ONE ×2 (12:31→14:53)
[2018-04-09 13:01] LABS: ALB/GLOB RATIO 1.4 (1.0-2.1); ALBUMIN 4.4 g/dL (3.5-5.0); BLOOD UREA NITROGEN 24 mg/dl (7-17); CALCIUM 9.8 mg/dL (8.4-10.2); GFR NON-AFRICAN AMERICAN > 60
[2018-04-09 13:08] LABS: BASO # 0.1 K/uL (0.0-0.2); BASO % 1.3 % (0.0-2.0); EOS # 2.6 K/uL (0.0-0.7); EOS % 23.5 % (0.0-4.0); HEMOGLOBIN 13.9 g/dL (12.0-16.0); LYMPH # 1.7 K/uL (1.0-4.3); LYMPH % 15.1 % (20.0-40.0); MEAN CELL VOLUME 99.3 fl (81.0-99.0); MEAN CORPUSCULAR HEMOGLOBIN 33.4 pg (27.0-31.0); MEAN CORPUSCULAR HGB CONC 33.7 g/dL (33.0-37.0); MEAN PLATELET VOLUME 8.7 fl (7.2-11.7); MONO # 0.8 K/uL (0.0-0.8); MONO % 7.1 % (0.0-10.0); NEUT # 5.8 K/uL (1.8-7.0); PLATELET COUNT 321 K/uL (130-400); RBC 4.15 Mil/uL (3.80-5.20); RED CELL DISTRIBUTION WIDTH 13.6 % (11.5-14.5); WHITE BLOOD COUNT 10.9 K/uL (4.8-10.8)
[2018-04-09 13:13] LABS: B-TYPE NATRIURETIC PEPTIDE 40.3 pg/ml (0-900)
[2018-04-09 13:16] LABS: ALT/SGPT 29 U/L (9-52); AST/SGOT 31 U/L (14-36)
[2018-04-09 14:06] LABS: BANDS 1 % (0-2); BASOPHIL 2 % (0-2); EOSINOPHIL 25 % (0-7); LYMPHOCYTE 18 % (20-50); MONOCYTE 5 % (0-10); NEUTROPHIL 48 % (42-75); PLATELET ESTIMATE NORMAL (NORMAL); REACTIVE LYMPHOCYTES 1 % (0-0); TOTAL CELLS COUNTED 100
[2018-04-09] MEDS ORDERED: levoFLOXacin 750 MG TAB PO STA (14:29)
--- NOTE | 2018-04-09 17:49 | CP.PCM.HP ---
<Eloisa Sanchez - Last Filed: 04/09/18 19:38> History of Present Illness - History of Present Illness History of Present Illness: 62 yo F w/ history of asthma, being admitted after presenting to ED today with shortness of breath. She took symbicort and albuterol at home with no relief, and thus came to emergency room. She had received 125 mg solumedrol IVP, albuterol treatment x2 and duonebs x3. Pt felt significantly better but remained tachycardic about an hour after last duoneb treatment. Denies any trigger, event, recent illness. Last exacerbation was in January 2018. She denies fevers, chills, productive cough, dizziness/weakness, chest pain, n/v/d/c/, urinary symptoms, numbness/tingling. PMD: [facility], Dr. Gerardo Toscano Past Med hx: asthma, prediabetes Past surg hx: denies Med: albuterol, symbicort, singulair, metformin Social hx: former smoker (15 pack yr history, quit 10-12 yrs ago), denies alcohol/drug use In ED: - EKG showed: NSR, rbbb, unchanged from prior ekgs - Labs: remarkable for WBC 10.9, no BNP elevation, neg trop, BUN 24 - Solu-medrol 125mg IVP - Albuterol 2.5mg INH x2 - Duoneb 3mL INH x3 - 1L NS bolus - CXR: appears to have left sided infiltrate - Levaquin 750mg PO Present on Admission - Present on Admission Any Indicators Present on Admission: No Review of Systems - Review of Systems All systems: reviewed and no additional remarkable complaints except (as per hpi) Past Patient History - Infectious Disease Hx of Infectious Diseases: None - Past Medical History & Family History Past Medical History?: Yes - Past Social History Smoking Status: Former Smoker Alcohol: None Drugs: Denies - CARDIAC Hx Cardiac Disorders: No - PULMONARY Hx Asthma: Yes Hx Bronchitis: Yes Hx Pneumonia: Yes - NEUROLOGICAL Hx Neurological Disorder: No - HEENT Hx HEENT Problems: No - RENAL Hx Chronic Kidney Disease: No - ENDOCRINE/METABOLIC Hx Endocrine Disorders: Yes Hx Diabetes Mellitus Type 2: Yes - HEMATOLOGICAL/ONCOLOGICAL Hx Human Immunodeficiency Virus (HIV): No - INTEGUMENTARY Hx Dermatological Problems: No - MUSCULOSKELETAL/RHEUMATOLOGICAL Hx Musculoskeletal Disorders: No Hx Falls: No - GASTROINTESTINAL Hx Gastrointestinal Disorders: No - GENITOURINARY/GYNECOLOGICAL Hx Genitourinary Disorders: No - PSYCHIATRIC Hx Psychophysiologic Disorder: No Hx Substance Use: No - SURGICAL HISTORY Hx Surgeries: No - ANESTHESIA Hx Anesthesia: No Hx Anesthesia Reactions: No Hx Malignant Hyperthermia: No Meds Allergies/Adverse Reactions: Allergies Allergy/AdvReac Type Severity Reaction Status Date / Time No Known Allergies Allergy Verified 02/08/18 10:12 Physical Exam - Constitutional Appears: No Acute Distress - Head Exam Head Exam: NORMAL INSPECTION - Eye Exam Eye Exam: Normal appearance - Respiratory Exam Respiratory Exam: Prolonged Expiratory Phase, Wheezes (scattered), NORMAL BREATHING PATTERN. absent: Respiratory Distress - Cardiovascular Exam Cardiovascular Exam: Tachycardia, +S1, +S2 - GI/Abdominal Exam GI & Abdominal Exam: Soft - Extremities Exam Extremities exam: Positive for: normal inspection. Negative for: calf tenderness - Neurological Exam Neurological exam: Alert, Oriented x3 - Psychiatric Exam Psychiatric exam: Normal Mood - Skin Skin Exam: Dry, Normal Color, Warm Results - Vital Signs Recent Vital Signs: Last Vital Signs Temp 98.1 F 04/09/18 17:02 Pulse 100 H 04/09/18 17:02 Resp 18 04/09/18 17:02 BP 141/54 L 04/09/18 17:02 Pulse Ox 95 04/09/18 17:33 - Labs Result Diagrams: 04/09/18 12:40 04/09/18 12:40 Labs: Laboratory Results - last 24 hr 04/09/18 04/09/18 12:40 12:40 WBC 10.9 H RBC 4.15 Hgb 13.9 Hct 41.3 MCV 99.3 H MCH 33.4 H MCHC 33.7 RDW 13.6 Plt Count 321 MPV 8.7 Neut % (Auto) 53.0 Lymph % (Auto) 15.1 L [place] % (Auto) 7.1 Eos % (Auto) 23.5 H Baso % (Auto) 1.3 Neut # (Auto) 5.8 Lymph # (Auto) 1.7 [place] # (Auto) 0.8 Eos # (Auto) 2.6 H Baso # (Auto) 0.1 Neutrophils % (Manual) 48 Band Neutrophils % 1 Lymphocytes % (Manual) 18 L Reactive Lymphs % 1 H Monocytes % (Manual) 5 Eosinophils % (Manual) 25 H Basophils % (Manual) 2 Platelet Estimate Normal RBC Morphology Normal Sodium 142 Potassium 4.3 Chloride 107 Carbon Dioxide 26 Anion Gap 13 BUN 24 H Creatinine 0.5 L Est GFR ( Amer) > 60 Est GFR (Non-Af Amer) > 60 Random Glucose 94 Calcium 9.8 Total Bilirubin 0.6 AST 31 ALT 29 Alkaline Phosphatase 55 Troponin I < 0.0120 NT-Pro-B Natriuret Pep 40.3 Total Protein 7.5 Albumin 4.4 Globulin 3.1 Albumin/Globulin Ratio 1.4 Assessment & Plan - Assessment and Plan (Free Text) Assessment: 62 yo F with hx prediabetes and asthma, admitted for observation due to asthma exacerbation. Treated with duonebs, steroids, and felt better but remained tachycardic after treatment. Possible infiltrate in left lung. Afebrile, hemodynamically stable, not in resp distress. Plan: Asthma Exacerbation - Admit to tele, tele monitoring - S/p solumedrol 125 mg IVP x1 - Duoneb Q4 hrs PRN - Advair 1 puff Q12 hrs - Resume home med montelukast Possible CAP - F/u official CXR read - s/p levaquin 750 mg PO x1 in ED Pre-diabetes - Hold metformin for now Diet - Consistent carb diet DVT Prophylaxis - SCD for now <Abdirizak Salazar D - Last Filed: 04/10/18 09:17> Results - Vital Signs Recent Vital Signs: Last Vital Signs Temp 97.8 F 04/10/18 08:00 Pulse 64 04/10/18 08:19 Resp 15 04/10/18 08:00 BP 120/65 04/10/18 08:00 Pulse Ox 94 L 04/10/18 08:00 - Labs Result Diagrams: 04/10/18 05:00 04/10/18 05:00 Labs: Laboratory Results - last 24 hr 04/09/18 04/09/18 04/10/18 12:40 12:40 05:00 WBC 10.9 H 11.4 H RBC 4.15 3.81 Hgb 13.9 12.6 Hct 41.3 38.2 MCV 99.3 H 100.3 H MCH 33.4 H 33.2 H MCHC 33.7 33.1 RDW 13.6 13.3 Plt Count 321 290 MPV 8.7 8.6 Neut % (Auto) 53.0 83.1 H Lymph % (Auto) 15.1 L 10.2 L [place] % (Auto) 7.1 6.2 Eos % (Auto) 23.5 H 0.1 Baso % (Auto) 1.3 0.4 Neut # (Auto) 5.8 9.5 H Lymph # (Auto) 1.7 1.2 [place] # (Auto) 0.8 0.7 Eos # (Auto) 2.6 H 0.0 Baso # (Auto) 0.1 0.0 Neutrophils % (Manual) 48 Band Neutrophils % 1 Lymphocytes % (Manual) 18 L Reactive Lymphs % 1 H Monocytes % (Manual) 5 Eosinophils % (Manual) 25 H Basophils % (Manual) 2 Platelet Estimate Normal RBC Morphology Normal Sodium 142 Potassium 4.3 Chloride 107 Carbon Dioxide 26 Anion Gap 13 BUN 24 H Creatinine 0.5 L Est GFR ( Amer) > 60 Est GFR (Non-Af Amer) > 60 Random Glucose 94 Calcium 9.8 Total Bilirubin 0.6 AST 31 ALT 29 Alkaline Phosphatase 55 Troponin I < 0.0120 NT-Pro-B Natriuret Pep 40.3 Total Protein 7.5 Albumin 4.4 Globulin 3.1 Albumin/Globulin Ratio 1.4 04/10/18 05:00 WBC RBC Hgb Hct MCV MCH MCHC RDW Plt Count MPV Neut % (Auto) Lymph % (Auto) [place] % (Auto) Eos % (Auto) Baso % (Auto) Neut # (Auto) Lymph # (Auto) [place] # (Auto) Eos # (Auto) Baso # (Auto) Neutrophils % (Manual) Band Neutrophils % Lymphocytes % (Manual) Reactive Lymphs % Monocytes % (Manual) Eosinophils % (Manual) Basophils % (Manual) Platelet Estimate RBC Morphology Sodium 141 Potassium 4.4 Chloride 106 Carbon Dioxide 27 Anion Gap 12 BUN 20 H Creatinine 0.5 L Est GFR ( Amer) > 60 Est GFR (Non-Af Amer) > 60 Random Glucose 122 H Calcium 9.7 Total Bilirubin AST ALT Alkaline Phosphatase Troponin I NT-Pro-B Natriuret Pep Total Protein Albumin Globulin Albumin/Globulin Ratio Attending/Attestation - Attestation I have personally seen and examined this patient.: Yes I have fully participated in the care of the patient.: Yes I have reviewed all pertinent clinical information: Yes Notes (Text): 04/10/18 09:16 Patient seen and examined with resident. Case discussed and agreed with assessment and plan of management.
[2018-04-09] MEDS ORDERED: Albuterol-Ipratrop 3 mg / 0.5 (3 ml) UD INH PRN (17:52)
[2018-04-09] MEDS: Fluticasone-Salmeterol 250-50mcg Diskus IH SCH (21:58)
--- NOTE | 2018-04-09 23:11 | CARD ---
APPROVED REPORT Date of service: 04/09/2018 EKG Measurement Heart [id number] <Conclusion> Normal sinus rhythm Right bundle branch block Inferior infarct, age undetermined Abnormal ECG
[2018-04-10 06:13] LABS: BASO % 0.4 % (0.0-2.0); EOS % 0.1 % (0.0-4.0); HEMOGLOBIN 12.6 g/dL (12.0-16.0); LYMPH # 1.2 K/uL (1.0-4.3); LYMPH % 10.2 % (20.0-40.0); MEAN CELL VOLUME 100.3 fl (81.0-99.0); MEAN CORPUSCULAR HEMOGLOBIN 33.2 pg (27.0-31.0); MEAN CORPUSCULAR HGB CONC 33.1 g/dL (33.0-37.0); MEAN PLATELET VOLUME 8.6 fl (7.2-11.7); MONO # 0.7 K/uL (0.0-0.8); MONO % 6.2 % (0.0-10.0); NEUT # 9.5 K/uL (1.8-7.0); NEUT % 83.1 % (50.0-75.0); NRBC % 0.1 % (0.0-0.0); RBC 3.81 Mil/uL (3.80-5.20); RED CELL DISTRIBUTION WIDTH 13.3 % (11.5-14.5); WHITE BLOOD COUNT 11.4 K/uL (4.8-10.8)
[2018-04-10 06:30] LABS: BLOOD UREA NITROGEN 20 mg/dl (7-17); CALCIUM 9.7 mg/dL (8.4-10.2); GFR NON-AFRICAN AMERICAN > 60
[2018-04-10 08:29] VITALS: PULSE 64
[2018-04-10 08:41] VITALS: BP 120/65; RESP 15; TEMP 97.8; O2SAT 94
[2018-04-10] MEDS ORDERED: Pneumococcal 23-Valent Vaccine IM ONE (09:00)
[2018-04-10] MEDS ORDERED: Pantoprazole 40 mg EC Tab PO SCH (09:00)
[2018-04-10] MEDS ORDERED: Influenza Vaccine (5 YR UP)/PF 60 MCG/0.5 ML SYR IM ONE (09:00)
[2018-04-10] MEDS ORDERED: Influenza Vaccine 60 mcg/0.5 mL SYR (4YR UP) IM ONE (09:00)
[2018-04-10] MEDS: Fluticasone-Salmeterol 250-50mcg Diskus IH SCH ×2 (09:51→10:01)
--- NOTE | 2018-04-10 11:07 | RAD ---
Date of service: 04/09/2018 HISTORY: SOB COMPARISON: 01/11/2018 TECHNIQUE: Chest PA and lateral FINDINGS: LUNGS: No active pulmonary disease. PLEURA: No significant pleural effusion identified. No pneumothorax apparent. CARDIOVASCULAR: No aortic atherosclerotic calcification present. Normal cardiac size. No pulmonary vascular congestion. OSSEOUS STRUCTURES: No significant abnormalities. VISUALIZED UPPER ABDOMEN: Normal. OTHER FINDINGS: None. IMPRESSION: No active disease.
--- NOTE | 2018-04-10 17:55 | CP.PCM.DIS ---
<Preethi Toscano - Last Filed: 04/10/18 17:53> Provider - Provider Date of Admission: 04/09/18 17:20 Attending physician: Abdirizak Salazar MD Primary care physician: Dr[facility] 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 Pastoral Care Referral Routine Comment: Physician Instructions: Reason For Exam: admission Time Spent in preparation of Discharge (in minutes): 30 Diagnosis - Discharge Diagnosis (1) Asthma exacerbation Status: Resolved Priority: Low (2) Tachycardia Status: Resolved Priority: Low Hospital Course - Lab Results Lab Results: Most Recent Lab Values WBC 11.4 K/uL (4.8-10.8) H 04/10/18 05:00 RBC 3.81 Mil/uL (3.80-5.20) 04/10/18 05:00 Hgb 12.6 g/dL (12.0-16.0) 04/10/18 05:00 Hct 38.2 % (34.0-47.0) 04/10/18 05:00 MCV 100.3 fl (81.0-99.0) H 04/10/18 05:00 MCH 33.2 pg (27.0-31.0) H 04/10/18 05:00 MCHC 33.1 g/dL (33.0-37.0) 04/10/18 05:00 RDW 13.3 % (11.5-14.5) 04/10/18 05:00 Plt Count 290 K/uL (130-400) 04/10/18 05:00 MPV 8.6 fl (7.2-11.7) 04/10/18 05:00 Neut % (Auto) 83.1 % (50.0-75.0) H 04/10/18 05:00 Lymph % (Auto) 10.2 % (20.0-40.0) L 04/10/18 05:00 [place] % (Auto) 6.2 % (0.0-10.0) 04/10/18 05:00 Eos % (Auto) 0.1 % (0.0-4.0) 04/10/18 05:00 Baso % (Auto) 0.4 % (0.0-2.0) 04/10/18 05:00 Neut # (Auto) 9.5 K/uL (1.8-7.0) H 04/10/18 05:00 Lymph # (Auto) 1.2 K/uL (1.0-4.3) 04/10/18 05:00 [place] # (Auto) 0.7 K/uL (0.0-0.8) 04/10/18 05:00 Eos # (Auto) 0.0 K/uL (0.0-0.7) 04/10/18 05:00 Baso # (Auto) 0.0 K/uL (0.0-0.2) 04/10/18 05:00 Neutrophils % (Manual) 48 % (42-75) 04/09/18 12:40 Band Neutrophils % 1 % (0-2) 04/09/18 12:40 Lymphocytes % (Manual) 18 % (20-50) L 04/09/18 12:40 Reactive Lymphs % 1 % (0-0) H 04/09/18 12:40 Monocytes % (Manual) 5 % (0-10) 04/09/18 12:40 Eosinophils % (Manual) 25 % (0-7) H 04/09/18 12:40 Basophils % (Manual) 2 % (0-2) 04/09/18 12:40 Platelet Estimate Normal (NORMAL) 04/09/18 12:40 RBC Morphology Normal (NORMAL) 04/09/18 12:40 Sodium 141 mmol/l (132-148) 04/10/18 05:00 Potassium 4.4 MMOL/L (3.6-5.0) 04/10/18 05:00 Chloride 106 mmol/L (98-107) 04/10/18 05:00 Carbon Dioxide 27 mmol/L (22-30) 04/10/18 05:00 Anion Gap 12 (10-20) 04/10/18 05:00 BUN 20 mg/dl (7-17) H 04/10/18 05:00 Creatinine 0.5 mg/dl (0.7-1.2) L 04/10/18 05:00 Est GFR ( Amer) > 60 04/10/18 05:00 Est GFR (Non-Af Amer) > 60 04/10/18 05:00 Random Glucose 122 mg/dL (65-105) H 04/10/18 05:00 Hemoglobin A1c 5.8 % (4.2-6.5) 04/10/18 05:00 Calcium 9.7 mg/dL (8.4-10.2) 04/10/18 05:00 Total Bilirubin 0.6 mg/dl (0.2-1.3) 04/09/18 12:40 AST 31 U/L (14-36) 04/09/18 12:40 ALT 29 U/L (9-52) 04/09/18 12:40 Alkaline Phosphatase 55 U/L (38-126) 04/09/18 12:40 Troponin I < 0.0120 ng/mL (0.00-0.120) 04/09/18 12:40 NT-Pro-B Natriuret Pep 40.3 pg/ml (0-900) 04/09/18 12:40 Total Protein 7.5 G/DL (6.3-8.2) 04/09/18 12:40 Albumin 4.4 g/dL (3.5-5.0) 04/09/18 12:40 Globulin 3.1 gm/dL (2.2-3.9) 04/09/18 12:40 Albumin/Globulin Ratio 1.4 (1.0-2.1) 04/09/18 12:40 - Hospital Course Hospital Course: 62 yr old F admitted for asthma exacerbation and tachycardia. During her admission patients tachycardia resolved and respiratory symptoms improved with treatment including duonebs and IV steroids. Patient remained afebrile, had normal O2 saturation on room air and was discharged stable with instructions to resume home medications and follow up with her PMD within 1 week. - Date & Time of H&P Date of H&P: 04/09/18 Time of H&P: 17:48 Discharge Exam - Head Exam Head Exam: NORMAL INSPECTION - Eye Exam Eye Exam: EOMI - ENT Exam ENT Exam: Mucous Membranes Moist - Neck Exam Neck exam: Full Rom - Respiratory Exam Respiratory Exam: Wheezes (mild), NORMAL BREATHING PATTERN - Cardiovascular Exam Cardiovascular Exam: REGULAR RHYTHM, +S1, +S2 - GI/Abdominal Exam GI & Abdominal Exam: Normal Bowel Sounds, Soft (obese). absent: Tenderness - Extremities Exam Extremities exam: full ROM (no calf tenderness, no pedal edema) - Neurological Exam Neurological exam: Alert, CN II-XII Intact, Oriented x3 Discharge Plan - Discharge Medications Prescriptions: Montelukast [Singulair] 10 mg PO DAILY #30 tab - Follow Up Plan Condition: FAIR Disposition: HOME/ ROUTINE Instructions: Asthma (DC) <Abdirizak Salazar - Last Filed: 04/10/18 18:04> Provider - Provider Date of Admission: 04/09/18 17:20 Attending physician: Abdirizak Salazar MD Consults: 04/10/18 08:00 Case Management Referral Routine Comment: Physician Instructions: Reason For Exam: admission-does not work Reason for Referral: 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 Eval Pastoral Care Referral Routine Comment: Physician Instructions: Reason For Exam: admission Hospital Course - Lab Results Lab Results: Most Recent Lab Values WBC 11.4 K/uL (4.8-10.8) H 04/10/18 05:00 RBC 3.81 Mil/uL (3.80-5.20) 04/10/18 05:00 Hgb 12.6 g/dL (12.0-16.0) 04/10/18 05:00 Hct 38.2 % (34.0-47.0) 04/10/18 05:00 MCV 100.3 fl (81.0-99.0) H 04/10/18 05:00 MCH 33.2 pg (27.0-31.0) H 04/10/18 05:00 MCHC 33.1 g/dL (33.0-37.0) 04/10/18 05:00 RDW 13.3 % (11.5-14.5) 04/10/18 05:00 Plt Count 290 K/uL (130-400) 04/10/18 05:00 MPV 8.6 fl (7.2-11.7) 04/10/18 05:00 Neut % (Auto) 83.1 % (50.0-75.0) H 04/10/18 05:00 Lymph % (Auto) 10.2 % (20.0-40.0) L 04/10/18 05:00 [place] % (Auto) 6.2 % (0.0-10.0) 04/10/18 05:00 Eos % (Auto) 0.1 % (0.0-4.0) 04/10/18 05:00 Baso % (Auto) 0.4 % (0.0-2.0) 04/10/18 05:00 Neut # (Auto) 9.5 K/uL (1.8-7.0) H 04/10/18 05:00 Lymph # (Auto) 1.2 K/uL (1.0-4.3) 04/10/18 05:00 [place] # (Auto) 0.7 K/uL (0.0-0.8) 04/10/18 05:00 Eos # (Auto) 0.0 K/uL (0.0-0.7) 04/10/18 05:00 Baso # (Auto) 0.0 K/uL (0.0-0.2) 04/10/18 05:00 Neutrophils % (Manual) 48 % (42-75) 04/09/18 12:40 Band Neutrophils % 1 % (0-2) 04/09/18 12:40 Lymphocytes % (Manual) 18 % (20-50) L 04/09/18 12:40 Reactive Lymphs % 1 % (0-0) H 04/09/18 12:40 Monocytes % (Manual) 5 % (0-10) 04/09/18 12:40 Eosinophils % (Manual) 25 % (0-7) H 04/09/18 12:40 Basophils % (Manual) 2 % (0-2) 04/09/18 12:40 Platelet Estimate Normal (NORMAL) 04/09/18 12:40 RBC Morphology Normal (NORMAL) 04/09/18 12:40 Sodium 141 mmol/l (132-148) 04/10/18 05:00 Potassium 4.4 MMOL/L (3.6-5.0) 04/10/18 05:00 Chloride 106 mmol/L (98-107) 04/10/18 05:00 Carbon Dioxide 27 mmol/L (22-30) 04/10/18 05:00 Anion Gap 12 (10-20) 04/10/18 05:00 BUN 20 mg/dl (7-17) H 04/10/18 05:00 Creatinine 0.5 mg/dl (0.7-1.2) L 04/10/18 05:00 Est GFR ( Amer) > 60 04/10/18 05:00 Est GFR (Non-Af Amer) > 60 04/10/18 05:00 Random Glucose 122 mg/dL (65-105) H 04/10/18 05:00 Hemoglobin A1c 5.8 % (4.2-6.5) 04/10/18 05:00 Calcium 9.7 mg/dL (8.4-10.2) 04/10/18 05:00 Total Bilirubin 0.6 mg/dl (0.2-1.3) 04/09/18 12:40 AST 31 U/L (14-36) 04/09/18 12:40 ALT 29 U/L (9-52) 04/09/18 12:40 Alkaline Phosphatase 55 U/L (38-126) 04/09/18 12:40 Troponin I < 0.0120 ng/mL (0.00-0.120) 04/09/18 12:40 NT-Pro-B Natriuret Pep 40.3 pg/ml (0-900) 04/09/18 12:40 Total Protein 7.5 G/DL (6.3-8.2) 04/09/18 12:40 Albumin 4.4 g/dL (3.5-5.0) 04/09/18 12:40 Globulin 3.1 gm/dL (2.2-3.9) 04/09/18 12:40 Albumin/Globulin Ratio 1.4 (1.0-2.1) 04/09/18 12:40 Attending/Attestation - Attestation I have personally seen and examined this patient.: Yes I have fully participated in the care of the patient.: Yes I have reviewed all pertinent clinical information, including history, physical exam and plan: Yes Notes (Text): 04/10/18 18:03 Patient seen and examined with resident. Case discussed and agreed with assessment. Patient discharged in stable condition.
== END 2018-04-10 11:26 | disposition home or self-care (01) ==
LOC: H.ER 11:06 → H.ERHOLD 17:20 → H.ICU/CCU 04-10 02:28
DX: J45.901 Unspecified asthma with (acute) exacerbation (principal); R73.03 Prediabetes; R00.0 Tachycardia, unspecified; Z79.84 Long term (current) use of oral hypoglycemic drugs; Z79.51 Long term (current) use of inhaled steroids; Z87.891 Personal history of nicotine dependence; Z23 Encounter for immunization; E66.9 Obesity, unspecified; Z68.37 Body mass index [BMI] 37.0-37.9, adult
CPT/HCPCS: 71046; 80048; 80053; 83036; 83880; 84484; 85025; 87081; 93005; 96361; 96374; 96376; 99285; G0008; G0378; J2930; J7040; Q2035